=== PATIENT | male | born 1955 | race Hispanic/Latino ===

== ENCOUNTER 2019-10-20 22:31 | Inpatient (IN) | payer MEDICARE ==
[2019-10-20 23:12] LABS: Bacteria,Urine 2+ /HPF (Negative); Bilirubin,Urine NEG (Negative); Blood,Urine MOD (Negative); Color,Urine Yellow (Yellow); Mucus,Urine FEW /HPF; Sperm,Urine FEW /HPF (NP); Urobilinogen,Urine < 2.0 mg/dL (<2.0)
[2019-10-20 23:17] LABS: Amphetamine Screen,Urine PRESUMPTIVE NEGATIVE; Benzodiazepines Screen,Urine PRESUMPTIVE NEGATIVE; Cannabinoid Screen,Urine PRESUMPTIVE NEGATIVE; Cocaine Screen,Urine PRESUMPTIVE NEGATIVE; Methadone Screen,Urine PRESUMPTIVE NEGATIVE; Opiate Screen,Urine PRESUMPTIVE NEGATIVE
--- NOTE | 2019-10-20 23:19 | XRay Report ---
CHEST 1 VIEW 10:50 PM INDICATION / CLINICAL INFORMATION: AMS. COMPARISON: None available. FINDINGS: SUPPORT DEVICES: None. HEART / MEDIASTINUM: The heart size and pulmonary vasculature are normal. The aorta is normal in tamera peter. LUNGS / PLEURA: No significant pulmonary or pleural abnormality. No pneumothorax. ADDITIONAL FINDINGS: The left hemidiaphragm is higher than the right. IMPRESSION: 1. Mildly elevated left hemidiaphragm. 2. No acute pulmonary disease is identified. Signer Name: Alexander Lyons MD Signed: 10/20/2019 11:15 PM Workstation Name: [id number]
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
[2019-10-20 23:38] LABS: Basophils % (Auto) 0.1 % (0.0-1.8); Eosinophils % (Auto) 0.1 % (0.0-4.3); Hematocrit 37.3 % (35.5-45.6); Hemoglobin 12.8 gm/dl (11.8-15.2); Lymphocytes # (Auto) 1.3 K/mm3 (1.2-5.4); Lymphocytes % (Auto) 9.5 % (13.4-35.0); Mean Corpuscular HGB Conc 34 % (32-34); Mean Corpuscular Volume 88 fl (84-94); Monocytes # (Auto) 1.1 K/mm3 (0.0-0.8); Platelet Count 161 K/mm3 (140-440); Red Blood Count 4.26 M/mm3 (3.65-5.03); Red Cell Distribution Width 14.1 % (13.2-15.2)
[2019-10-20 23:49] LABS: INR 1.13 (0.87-1.13)
[2019-10-20 23:50] LABS: Partial Thromboplastin Time 28.2 Sec. (24.2-36.6)
[2019-10-20 23:59] LABS: Alanine Aminotransferase 10 units/L (7-56); Albumin 3.7 g/dL (3.9-5); BUN/Creatinine Ratio 6; Blood Urea Nitrogen 3 mg/dL (9-20); Hemolysis Index 36
[2019-10-21 00:02] LABS: Bilirubin,Direct < 0.2 mg/dL (0-0.2)
[2019-10-21] MEDS ORDERED: ONDANSETRON 4 MG/2 ML INJ ONE (00:16)
[2019-10-21] MEDS ORDERED: LORazepam 2 MG/ML VIAL ONE (00:16)
[2019-10-21] MEDS ORDERED: LORazepam 2 MG/ML VIAL IV ONE (00:20)
[2019-10-21] MEDS ORDERED: ONDANSETRON 4 MG/2 ML INJ IV ONE (00:21)
[2019-10-21] MEDS ORDERED: SODIUM CHLORIDE 0.9% 1000 ML 1,000 ML IV ONE (00:24)
--- NOTE | 2019-10-21 00:53 | Cat Scan Report ---
CT HEAD/BRAIN WO CON INDICATION / CLINICAL INFORMATION: Altered mental status. Trauma. TECHNIQUE: All CT scans at this location are performed using CT dose reduction for ALARA by means of automated e xposure control. COMPARISON: None available. FINDINGS: There is mild motion artifact. The ventricular system is normal in size and configuration. No focal l esion or mass effect is seen. There is no evidence of intracranial hemorrhage or acute major vessel o cclusion. The calvarium is intact. The visualized paranasal sinuses and mastoid air cells are clear. IMPRESSION: No acute abnormality. Signer Name: Alexander Lyons MD Signed: 10/21/2019 12:49 AM Workstation Name: [id number]
[2019-10-21] MEDS ORDERED: ONDANSETRON 4 MG/2 ML INJ IV PRN (02:47)
[2019-10-21] MEDS ORDERED: MAGNESIUM HYDROXIDE (MOM) ORAL LIQD UDC PO PRN (02:47)
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
[2019-10-21] MEDS ORDERED: SODIUM CHLORIDE 0.9% 1000 ML 1,000 ML ONE ×2 (06:41→07:34)
[2019-10-21] MEDS ORDERED: ACETAMINOPHEN 325 MG TAB ONE (07:33)
[2019-10-21] MEDS: SODIUM CHLORIDE 0.9% 1000 ML 1,000 ML IV SCH ×2 (07:38→21:42)
[2019-10-21] MEDS ORDERED: ACETAMINOPHEN 650 MG RECT SUPP PR ONE (07:45)
[2019-10-21] MEDS ORDERED: ACETAMINOPHEN 650 MG RECT SUPP PR PRN (07:58)
--- NOTE | 2019-10-21 08:19 | Progress Note ---
Assessment and Plan Assessment and plan: --Toxic metabolic encephalopathy; Multifactorial, hyponatremia, acute psychosis Neurochecks, supportive care --Possible alcohol withdrawal symptoms; [facility] protocol, IV fluids, supportive care Chest x-ray; mildly elevated left diaphragm. No acute abnormality CT head; no acute abnormality CT C-spine; pending report --Severe hyponatremia; replaced with sodium chloride IV Closely monitor electrolytes, nephrology consultation as needed --Acute psychosis; unknown psych history Restraint for safety, PRN medications Psych evaluation --Febrile illness; T-max 101 F; IV fluids, anti-biotics, consider empiric antibiotics if fever persists Set of cultures blood and urine --DVT prophylaxis; Lovenox Restraint for safety Monitor closely and adjust management as needed Plan of care reviewed with the patient'S nurse History Interval history: Patient seen and examined at the bedside Patient's chart and medications reviewed Admitted this morning with acute metabolic encephalopathy Severe hyponatremia, possible alcohol withdrawals Patient is lethargic, responds to deep stimuli, noncommunicative Agitated and psychotic Vital signs noted Restraint for safety Hospitalist Physical - Constitutional Vitals: Temp Pulse Resp BP Pulse Ox 101.8 F H 82 20 130/54 96 10/21/19 07:27 10/21/19 07:27 10/21/19 07:27 10/21/19 07:27 10/21/19 07:27 General appearance: Present: severe distress, well-nourished, other (Agitated) - EENT Eyes: Present: PERRL, EOM intact - Neck Neck: Present: supple, normal ROM - Respiratory Respiratory effort: normal Respiratory: bilateral: diminished, rhonchi, negative: rales, wheezing - Cardiovascular Rhythm: regular Heart Sounds: Present: S1 & S2 - Extremities Extremities: no ischemia, No edema - Abdominal General gastrointestinal: soft, non-tender, non-distended, normal bowel sounds - Integumentary Integumentary: Present: clear, warm - Psychiatric Psychiatric: appropriate mood/affect, cooperative - Neurologic Neurologic: CNII-XII intact, moves all extremities HEART Score - HEART Score Troponin: Troponin T < 0.010 ng/mL (0.00-0.029) 10/20/19 23:17 Results - Labs CBC & Chem 7: 10/21/19 11:03 10/21/19 11:03 Labs: Laboratory Last Values WBC 13.9 K/mm3 (4.5-11.0) H 10/20/19 23:17 RBC 4.26 M/mm3 (3.65-5.03) 10/20/19 23:17 Hgb 12.8 gm/dl (11.8-15.2) 10/20/19 23:17 Hct 37.3 % (35.5-45.6) 10/20/19 23:17 MCV 88 fl (84-94) 10/20/19 23:17 MCH 30 pg (28-32) 10/20/19 23:17 MCHC 34 % (32-34) 10/20/19 23:17 RDW 14.1 % (13.2-15.2) 10/20/19 23:17 Plt Count 161 K/mm3 (140-440) 10/20/19 23:17 Lymph % (Auto) 9.5 % (13.4-35.0) L 10/20/19 23:17 [place] % (Auto) 8.0 % (0.0-7.3) H 10/20/19 23:17 Eos % (Auto) 0.1 % (0.0-4.3) 10/20/19 23:17 Baso % (Auto) 0.1 % (0.0-1.8) 10/20/19 23:17 Lymph # 1.3 K/mm3 (1.2-5.4) 10/20/19 23:17 [place] # 1.1 K/mm3 (0.0-0.8) H 10/20/19 23:17 Eos # 0.0 K/mm3 (0.0-0.4) 10/20/19 23:17 Baso # 0.0 K/mm3 (0.0-0.1) 10/20/19 23:17 Seg Neutrophils % 82.3 % (40.0-70.0) H 10/20/19 23:17 Seg Neutrophils # 11.4 K/mm3 (1.8-7.7) H 10/20/19 23:17 PT 14.3 Sec. (12.2-14.9) 10/20/19 23:17 INR 1.13 (0.87-1.13) 10/20/19 23:17 APTT 28.2 Sec. (24.2-36.6) 10/20/19 23:17 Sodium 112 mmol/L (137-145) L* 10/20/19 23:17 Potassium 4.2 mmol/L (3.6-5.0) 10/20/19 23:17 Chloride 78.5 mmol/L (98-107) L 10/20/19 23:17 Carbon Dioxide 16 mmol/L (22-30) L 10/20/19 23:17 Anion Gap 22 mmol/L 10/20/19 23:17 BUN 3 mg/dL (9-20) L 10/20/19 23:17 Creatinine 0.5 mg/dL (0.8-1.5) L 10/20/19 23:17 Estimated GFR > 60 ml/min 10/20/19 23:17 BUN/Creatinine Ratio 6 % 10/20/19 23:17 Glucose 114 mg/dL (75-100) H 10/20/19 23:17 POC Glucose 117 (70-105) H 10/20/19 22:52 Calcium 8.0 mg/dL (8.4-10.2) L 10/20/19 23:17 Total Bilirubin 0.80 mg/dL (0.1-1.2) 10/20/19 23:17 Direct Bilirubin < 0.2 mg/dL (0-0.2) 10/20/19 23:17 Indirect Bilirubin 0.6 mg/dL 10/20/19 23:17 AST 19 units/L (5-40) 10/20/19 23:17 ALT 10 units/L (7-56) 10/20/19 23:17 Alkaline Phosphatase 47 units/L (35-129) 10/20/19 23:17 Total Creatine Kinase 687 units/L (55-170) H 10/21/19 02:17 Troponin T < 0.010 ng/mL (0.00-0.029) 10/20/19 23:17 Total Protein 5.6 g/dL (6.3-8.2) L 10/20/19 23:17 Albumin 3.7 g/dL (3.9-5) L 10/20/19 23:17 Albumin/Globulin Ratio 1.9 % 10/20/19 23:17 TSH 2.560 mlU/mL (0.270-4.200) 10/21/19 02:27 Urine Color Yellow (Yellow) 10/20/19 Unknown Urine Turbidity Slightly-cloudy (Clear) 10/20/19 Unknown Urine pH 5.0 (5.0-7.0) 10/20/19 Unknown Ur Specific [place] 1.013 (1.003-1.030) 10/20/19 Unknown Urine Protein 30 mg/dl mg/dL (Negative) 10/20/19 Unknown Urine Glucose (UA) Neg mg/dL (Negative) 10/20/19 Unknown Urine Ketones 80 mg/dL (Negative) 10/20/19 Unknown Urine Blood Mod (Negative) 10/20/19 Unknown Urine Nitrite Neg (Negative) 10/20/19 Unknown Urine Bilirubin Neg (Negative) 10/20/19 Unknown Urine Urobilinogen < 2.0 mg/dL (<2.0) 10/20/19 Unknown Ur Leukocyte Esterase Neg (Negative) 10/20/19 Unknown Urine WBC (Auto) 4.0 /HPF (0.0-6.0) 10/20/19 Unknown Urine RBC (Auto) 4.0 /HPF (0.0-6.0) 10/20/19 Unknown U Epithel Cells (Auto) < 1.0 /HPF (0-13.0) 10/20/19 Unknown Urine Bacteria (Auto) 2+ /HPF (Negative) 10/20/19 Unknown Urine Mucus Few /HPF 10/20/19 Unknown Urine Yeast (Budding) 1+ /HPF 10/20/19 Unknown Urine Sperm Few /HPF (CIRCUS SUPERVISOR) 10/20/19 Unknown Salicylates < 0.3 mg/dL (2.8-20.0) L 10/20/19 23:17 Urine Opiates Screen Presumptive negative 10/20/19 Unknown Urine Methadone Screen Presumptive negative 10/20/19 Unknown Acetaminophen < 5.0 ug/mL (10.0-30.0) L 10/20/19 23:17 Ur Barbiturates Screen Presumptive negative 10/20/19 Unknown Ur Phencyclidine Scrn Presumptive negative 10/20/19 Unknown Ur Amphetamines Screen Presumptive negative 10/20/19 Unknown U Benzodiazepines Scrn Presumptive negative 10/20/19 Unknown Urine Cocaine Screen Presumptive negative 10/20/19 Unknown U Marijuana (THC) Screen Presumptive negative 10/20/19 Unknown Drugs of Abuse Note Disclamer 10/20/19 Unknown Plasma/Serum Alcohol < 0.01 % (0-0.07) 10/20/19 23:17 Active Medications - Current Medications Current Medications: Generic Name Dose Route Start Last Admin Trade Name Everq PRN Reason Stop Dose Admin Acetaminophen 650 mg 10/21/19 02:47 Tylenol PO Q4H PRN Pain MILD(1-3)/Fever >100.5/CORREA Acetaminophen 650 mg 10/21/19 07:58 10/21/19 07:59 Tylenol [place] 650 mg Q6H PRN Administration Pain, Mild (1-3) Heparin Sodium (Porcine) 5,000 unit 10/21/19 06:00 Heparin SUB-Q Q8HR JULIANNA Sodium Chloride 1,000 mls @ 125 mls/hr 10/21/19 03:00 10/21/19 07:38 Nacl 0.9% 1000 Ml IV 125 mls/hr DIRECT JULIANNA Administration Ceftriaxone Sodium 1 gm in 50 mls @ 100 mls/hr 10/21/19 10:00 Rocephin/Ns 1 Gm/50 Ml IV Q24HR [facility] Protocol Magnesium Hydroxide 30 ml 10/21/19 02:47 Milk Of Magnesia PO Q4H PRN Constipation Ondansetron HCl 4 mg 10/21/19 02:47 Zofran IV Q8H PRN Nausea And Vomiting Sodium Chloride 10 ml 10/21/19 10:00 Sodium Chloride Flush Syringe 10 Ml IV BID JULIANNA Sodium Chloride 10 ml 10/21/19 02:47 Sodium Chloride Flush Syringe 10 Ml IV PRN PRN LINE FLUSH
[2019-10-21 11:15] LABS: Basophils % (Auto) 0.1 % (0.0-1.8); Hematocrit 37.4 % (35.5-45.6); Hemoglobin 12.8 gm/dl (11.8-15.2); Mean Corpuscular HGB Conc 34 % (32-34); Mean Corpuscular Volume 88 fl (84-94); Monocytes # (Auto) 1.5 K/mm3 (0.0-0.8); Monocytes % (Auto) 9.9 % (0.0-7.3); Platelet Count 160 K/mm3 (140-440); Red Blood Count 4.26 M/mm3 (3.65-5.03); Red Cell Distribution Width 14.4 % (13.2-15.2)
[2019-10-21 11:35] LABS: BUN/Creatinine Ratio 6; Blood Urea Nitrogen 3 mg/dL (9-20); Calcium 7.1 mg/dL (8.4-10.2); Hemolysis Index 29
[2019-10-21] MEDS: HEPARIN 5,000 UNIT/1 ML VIAL SUB-Q SCH ×2 (17:57→21:42)
[2019-10-21] MEDS: cefTRIAXone/NS 1 GM/50 ML 1 GM/50 ML BAG IV SCH (17:58)
[2019-10-21] MEDS ORDERED: LORazepam 2 MG/ML VIAL IV PRN (19:46)
[2019-10-21 20:23] LABS: Osmolality,Urine 99 Mosm/kg
[2019-10-21] MEDS: LORazepam 2 MG/ML VIAL IV PRN (21:42)
[2019-10-22 04:36] LABS: Basophils % (Auto) 0.1 % (0.0-1.8); Hematocrit 41.1 % (35.5-45.6); Hemoglobin 13.9 gm/dl (11.8-15.2); Lymphocytes # (Auto) 1.2 K/mm3 (1.2-5.4); Lymphocytes % (Auto) 8.9 % (13.4-35.0); Mean Corpuscular HGB Conc 34 % (32-34); Mean Corpuscular Volume 89 fl (84-94); Monocytes # (Auto) 1.2 K/mm3 (0.0-0.8); Monocytes % (Auto) 8.9 % (0.0-7.3); Platelet Count 179 K/mm3 (140-440); Red Blood Count 4.64 M/mm3 (3.65-5.03); Red Cell Distribution Width 14.9 % (13.2-15.2)
[2019-10-22 04:45] LABS: INR 1.14 (0.87-1.13)
[2019-10-22 05:04] LABS: BUN/Creatinine Ratio 3; Blood Urea Nitrogen 2 mg/dL (9-20); Calcium 8.9 mg/dL (8.4-10.2); Hemolysis Index 5
[2019-10-22] MEDS: HEPARIN 5,000 UNIT/1 ML VIAL SUB-Q SCH ×3 (05:21→21:32)
--- NOTE | 2019-10-22 08:26 | Cat Scan Report ---
CT CERVICAL SPINE WO CON INDICATION / CLINICAL INFORMATION: Altered mental status. Trauma with neck pain. TECHNIQUE: All CT scans at this location are performed using CT dose reduction for ALARA by means of automated e xposure control. COMPARISON: None available. FINDINGS: There is mild degenerative disc disease at C5-6 with moderate anterior spurring. The other disc space s are unremarkable. The prevertebral soft tissues are normal. There is no evidence of fracture or sub luxation. I see no evidence of a focal disc herniation or epidural hematoma. The lung apices are sean r. IMPRESSION: No acute abnormality. Signer Name: Alexander Lyons MD Signed: 10/21/2019 12:02 AM Workstation Name: [id number]
[2019-10-22] MEDS: cefTRIAXone/NS 1 GM/50 ML 1 GM/50 ML BAG IV SCH (10:45)
--- NOTE | 2019-10-22 10:47 | Progress Note ---
Assessment and Plan Assessment and plan: -PUI: Rule out COVID-19 Patient has fever, alcohol intoxication, and encephalopathy Dale PCR test, inflammatory markers requested -Toxic metabolic encephalopathy; Multifactorial, hyponatremia, acute psychosis Neurochecks, supportive care --Possible alcohol withdrawal symptoms; CIWA protocol, IV fluids, supportive care Chest x-ray; mildly elevated left diaphragm. No acute abnormality CT head; no acute abnormality CT C-spine; pending report --Severe hyponatremia; replaced with sodium chloride IV Closely monitor electrolytes, nephrology consultation as needed --Acute psychosis; unknown psych history Restraint for safety, PRN medications Psych evaluation --Febrile illness; T-max 101 F; IV fluids, anti-biotics, consider empiric antibiotics if fever persists Set of cultures blood and urine --DVT prophylaxis; Lovenox Restraint for safety Monitor closely and adjust management as needed Plan of care reviewed with the patient'S nurse History Interval history: Seen and examined patient's chart and medications reviewed Patient is confused mildly agitated, low-grade fever Vital signs noted Hospitalist Physical - Constitutional Vitals: Temp Pulse Resp BP Pulse Ox 97.9 F 95 H 18 121/69 92 10/22/19 07:31 10/22/19 07:31 10/22/19 07:31 10/22/19 07:31 10/22/19 07:31 General appearance: Present: mild distress, well-nourished, other (Agitated) - EENT Eyes: Present: PERRL, EOM intact - Neck Neck: Present: supple, normal ROM - Respiratory Respiratory effort: normal Respiratory: bilateral: diminished, negative: rales, rhonchi, wheezing - Cardiovascular Rhythm: regular Heart Sounds: Present: S1 & S2 - Extremities Extremities: no ischemia, No edema - Abdominal General gastrointestinal: soft, non-tender, non-distended, normal bowel sounds - Integumentary Integumentary: Present: clear, warm - Psychiatric Psychiatric: appropriate mood/affect, other (Confused) - Neurologic Neurologic: moves all extremities HEART Score - HEART Score Troponin: Troponin T < 0.010 ng/mL (0.00-0.029) 10/20/19 23:17 Results - Labs CBC & Chem 7: 10/22/19 03:59 10/22/19 03:59 Labs: Laboratory Last Values WBC 13.4 K/mm3 (4.5-11.0) H 07/07/20 03:59 RBC 4.64 M/mm3 (3.65-5.03) 10/22/19 03:59 Hgb 13.9 gm/dl (11.8-15.2) 10/22/19 03:59 Hct 41.1 % (35.5-45.6) 10/22/19 03:59 MCV 89 fl (84-94) 10/22/19 03:59 MCH 30 pg (28-32) 10/22/19 03:59 MCHC 34 % (32-34) 10/22/19 03:59 RDW 14.9 % (13.2-15.2) 10/22/19 03:59 Plt Count 179 K/mm3 (140-440) 10/22/19 03:59 Lymph % (Auto) 8.9 % (13.4-35.0) L 10/22/19 03:59 [place] % (Auto) 8.9 % (0.0-7.3) H 10/22/19 03:59 Eos % (Auto) 0.0 % (0.0-4.3) 10/22/19 03:59 Baso % (Auto) 0.1 % (0.0-1.8) 10/22/19 03:59 Lymph # 1.2 K/mm3 (1.2-5.4) 10/22/19 03:59 [place] # 1.2 K/mm3 (0.0-0.8) H 10/22/19 03:59 Eos # 0.0 K/mm3 (0.0-0.4) 10/22/19 03:59 Baso # 0.0 K/mm3 (0.0-0.1) 10/22/19 03:59 Seg Neutrophils % 82.1 % (40.0-70.0) H 10/22/19 03:59 Seg Neutrophils # 11.0 K/mm3 (1.8-7.7) H 10/22/19 03:59 PT 14.4 Sec. (12.2-14.9) 10/22/19 03:59 INR 1.14 (0.87-1.13) H 10/22/19 03:59 APTT 28.2 Sec. (24.2-36.6) 10/20/19 23:17 Sodium 138 mmol/L (137-145) D 10/22/19 03:59 Potassium 3.5 mmol/L (3.6-5.0) L 10/22/19 03:59 Chloride 100.9 mmol/L (98-107) 10/22/19 03:59 Carbon Dioxide 23 mmol/L (22-30) 10/22/19 03:59 Anion Gap 18 mmol/L 10/22/19 03:59 BUN 2 mg/dL (9-20) L 10/22/19 03:59 Creatinine 0.6 mg/dL (0.8-1.5) L 10/22/19 03:59 Estimated GFR > 60 ml/min 10/22/19 03:59 BUN/Creatinine Ratio 3 % 10/22/19 03:59 Glucose 72 mg/dL (75-100) L 10/22/19 03:59 POC Glucose 117 (70-105) H 10/20/19 22:52 Calcium 8.9 mg/dL (8.4-10.2) D 10/22/19 03:59 Total Bilirubin 0.80 mg/dL (0.1-1.2) 10/20/19 23:17 Direct Bilirubin < 0.2 mg/dL (0-0.2) 10/20/19 23:17 Indirect Bilirubin 0.6 mg/dL 10/20/19 23:17 AST 19 units/L (5-40) 10/20/19 23:17 ALT 10 units/L (7-56) 10/20/19 23:17 Alkaline Phosphatase 47 units/L (35-129) 10/20/19 23:17 Total Creatine Kinase 687 units/L (55-170) H 10/21/19 02:17 Troponin T < 0.010 ng/mL (0.00-0.029) 10/20/19 23:17 Total Protein 5.6 g/dL (6.3-8.2) L 10/20/19 23:17 Albumin 3.7 g/dL (3.9-5) L 10/20/19 23:17 Albumin/Globulin Ratio 1.9 % 10/20/19 23:17 TSH 2.560 mlU/mL (0.270-4.200) 10/21/19 02:27 Urine Color Yellow (Yellow) 10/20/19 Unknown Urine Turbidity Slightly-cloudy (Clear) 10/20/19 Unknown Urine pH 5.0 (5.0-7.0) 10/20/19 Unknown Ur Specific [place] 1.013 (1.003-1.030) 10/20/19 Unknown Urine Protein 30 mg/dl mg/dL (Negative) 10/20/19 Unknown Urine Glucose (UA) Neg mg/dL (Negative) 10/20/19 Unknown Urine Ketones 80 mg/dL (Negative) 10/20/19 Unknown Urine Blood Mod (Negative) 10/20/19 Unknown Urine Nitrite Neg (Negative) 10/20/19 Unknown Urine Bilirubin Neg (Negative) 10/20/19 Unknown Urine Urobilinogen < 2.0 mg/dL (<2.0) 10/20/19 Unknown Ur Leukocyte Esterase Neg (Negative) 10/20/19 Unknown Urine WBC (Auto) 4.0 /HPF (0.0-6.0) 10/20/19 Unknown Urine RBC (Auto) 4.0 /HPF (0.0-6.0) 10/20/19 Unknown U Epithel Cells (Auto) < 1.0 /HPF (0-13.0) 10/20/19 Unknown Urine Bacteria (Auto) 2+ /HPF (Negative) 10/20/19 Unknown Urine Mucus Few /HPF 10/20/19 Unknown Urine Yeast (Budding) 1+ /HPF 10/20/19 Unknown Urine Sperm Few /HPF (PRODUCT SUPPORT ANALYST) 10/20/19 Unknown Urine Osmolality 99 Mosm/kg 10/21/19 18:00 Salicylates < 0.3 mg/dL (2.8-20.0) L 10/20/19 23:17 Urine Opiates Screen Presumptive negative 10/20/19 Unknown Urine Methadone Screen Presumptive negative 10/20/19 Unknown Acetaminophen < 5.0 ug/mL (10.0-30.0) L 10/20/19 23:17 Ur Barbiturates Screen Presumptive negative 10/20/19 Unknown Ur Phencyclidine Scrn Presumptive negative 10/20/19 Unknown Ur Amphetamines Screen Presumptive negative 10/20/19 Unknown U Benzodiazepines Scrn Presumptive negative 10/20/19 Unknown Urine Cocaine Screen Presumptive negative 10/20/19 Unknown U Marijuana (THC) Screen Presumptive negative 10/20/19 Unknown Drugs of Abuse Note Disclamer 10/20/19 Unknown Plasma/Serum Alcohol < 0.01 % (0-0.07) 10/20/19 23:17 Watson/IV: Voiding Method Condom Catheter IV Catheter Type [Left Forearm Peripheral IV ] Active Medications - Current Medications Current Medications: Generic Name Dose Route Start Last Admin Trade Name Freq PRN Reason Stop Dose Admin Acetaminophen 650 mg 10/21/19 02:47 Tylenol PO Q4H PRN Pain MILD(1-3)/Fever >100.5/CORREA Acetaminophen 650 mg 10/21/19 07:58 10/21/19 07:59 Tylenol [place] 650 mg Q6H PRN Administration Pain, Mild (1-3) Heparin Sodium (Porcine) 5,000 unit 10/21/19 06:00 10/22/19 05:21 Heparin SUB-Q 5,000 unit Q8HR JULIANNA Administration Sodium Chloride 1,000 mls @ 125 mls/hr 10/21/19 03:00 10/21/19 21:42 Nacl 0.9% 1000 Ml IV 125 mls/hr DIRECT JULIANNA Administration Ceftriaxone Sodium 1 gm in 50 mls @ 100 mls/hr 10/21/19 10:00 10/21/19 17:58 Rocephin/Ns 1 Gm/50 Ml IV 10/25/19 10:29 Not Given Q24HR JULIANNA Protocol Lorazepam 2 mg 10/21/19 18:14 10/21/19 21:42 Ativan IV 2 mg Q4H PRN Administration Agitation Lorazepam 2 mg 10/21/19 19:46 Ativan IV Q1HR PRN CIWA-Ar 8-15 Magnesium Hydroxide 30 ml 10/21/19 02:47 Milk Of Magnesia PO Q4H PRN Constipation Ondansetron HCl 4 mg 10/21/19 02:47 Zofran IV Q8H PRN Nausea And Vomiting Sodium Chloride 10 ml 10/21/19 10:00 10/21/19 21:43 Sodium Chloride Flush Syringe 10 Ml IV 10 ml BID JULIANNA Administration Sodium Chloride 10 ml 10/21/19 02:47 Sodium Chloride Flush Syringe 10 Ml IV PRN PRN LINE FLUSH
[2019-10-22 11:06] LABS: C-Reactive Protein 18.6 mg/dL (0.00-1.30)
--- NOTE | 2019-10-22 11:50 | Consultation ---
History of Present Illness - Reason for Consult Consult date: 10/22/19 Reason for consult: AMS - History of Present Psychiatric Illness Iron Munoz is a 64y/o male patient who is said to have been found on the floor by EMS and became combative, and believed to be having ETOH withdrawal, per chart. I attempted to interview the patient today, but was unable to engage the patient. He is confused and in restraints. He is unable to give any history or insight as to what is going on with him. PAST PSYCHIATRIC HISTORY Unable to obtain from patient PAST MEDICAL HISTORY: Unable to obtaing Family Psychiatric History: Unable to obtain SOCIAL HISTORY Unable to obtain MENTAL STATUS EXAMINATION Unable to assess Assessment and Plan Alcohol Dependence with Withdrawal MEDICATIONS: CIWA Depakon 500mg IV q 12 hrs Risks, benefits and alternatives of medications discussed with the patient, questions answered and consent obtained from patient. PSYCHOTHERAPY: Supportive psychotherapy provided MEDICAL: Per primary team DELIRIUM PRECAUTIONS: Please re-orient patient frequently, keep lights on during the day, and minimize benzodiazepines and opiates as these medications could wo rsen patient's confusion. CHIEF MECHANICAL ENGINEER: defer to primary DISPOSITION: TBD FOLLOW-UP: Will follow Thank you for the consult. Please contact with any questions and/or concerns. Medications and Allergies Allergies Allergy/AdvReac Type Severity Reaction Status Date / Time Unable to Assess Allergy Verified 10/21/19 00:15 Active Meds: Active Medications Acetaminophen (Tylenol) 650 mg PO Q4H PRN PRN Reason: Pain MILD(1-3)/Fever >100.5/CORREA Acetaminophen (Tylenol) 650 mg [place] Q6H PRN PRN Reason: Pain, Mild (1-3) Last Admin: 10/21/19 07:59 Dose: 650 mg Documented by: Heparin Sodium (Porcine) (Heparin) 5,000 unit SUB-Q Q8HR JULIANNA Last Admin: 10/22/19 05:21 Dose: 5,000 unit Documented by: Sodium Chloride (Nacl 0.9% 1000 Ml) 1,000 mls @ 125 mls/hr IV DIRECT JULIANNA Last Admin: 10/21/19 21:42 Dose: 125 mls/hr Documented by: Ceftriaxone Sodium (Rocephin/Ns 1 Gm/50 Ml) 1 gm in 50 mls @ 100 mls/hr IV Q24HR JULIANNA; Protocol Stop: 10/25/19 10:29 Last Admin: 10/22/19 10:45 Dose: 100 mls/hr Documented by: Lorazepam (Ativan) 2 mg IV Q4H PRN PRN Reason: Agitation Last Admin: 10/21/19 21:42 Dose: 2 mg Documented by: Lorazepam (Ativan) 2 mg IV Q1HR PRN PRN Reason: CIWA-Ar 8-15 Magnesium Hydroxide (Milk Of Magnesia) 30 ml PO Q4H PRN PRN Reason: Constipation Ondansetron HCl (Zofran) 4 mg IV Q8H PRN PRN Reason: Nausea And Vomiting Sodium Chloride (Sodium Chloride Flush Syringe 10 Ml) 10 ml IV BID JULIANNA Last Admin: 10/22/19 10:45 Dose: 10 ml Documented by: Sodium Chloride (Sodium Chloride Flush Syringe 10 Ml) 10 ml IV PRN PRN PRN Reason: LINE FLUSH Mental Status Exam - Vital signs Last Vital Signs Temp 99.0 F 10/22/19 11:02 Pulse 92 H 10/22/19 11:02 Resp 18 10/22/19 11:02 BP 109/69 10/22/19 11:02 Pulse Ox 97 10/22/19 11:02 Results Result Diagrams: 10/22/19 03:59 10/22/19 03:59 Abnormal lab results 10/22/19 10/22/19 10/22/19 Range/Units 03:59 03:59 03:59 WBC 13.4 H (4.5-11.0) K/mm3 Lymph % (Auto) 8.9 L (13.4-35.0) % [place] % (Auto) 8.9 H (0.0-7.3) % [place] # 1.2 H (0.0-0.8) K/mm3 Seg Neutrophils % 82.1 H (40.0-70.0) % Seg Neutrophils # 11.0 H (1.8-7.7) K/mm3 INR 1.14 H (0.87-1.13) D-Dimer (0-234) ng/mlDDU Potassium 3.5 L (3.6-5.0) mmol/L BUN 2 L (9-20) mg/dL Creatinine 0.6 L (0.8-1.5) mg/dL Glucose 72 L (75-100) mg/dL Lactate Dehydrogenase (91-180) units/L C-Reactive Protein (0.00-1.30) mg/dL 10/22/19 10/22/19 Range/Units 10:32 10:32 WBC (4.5-11.0) K/mm3 Lymph % (Auto) (13.4-35.0) % [place] % (Auto) (0.0-7.3) % [place] # (0.0-0.8) K/mm3 Seg Neutrophils % (40.0-70.0) % Seg Neutrophils # (1.8-7.7) K/mm3 INR (0.87-1.13) D-Dimer 707.81 H (0-234) ng/mlDDU Potassium (3.6-5.0) mmol/L BUN (9-20) mg/dL Creatinine (0.8-1.5) mg/dL Glucose (75-100) mg/dL Lactate Dehydrogenase 277 H (91-180) units/L C-Reactive Protein 18.60 H (0.00-1.30) mg/dL All other labs normal.
[2019-10-22] MEDS: VALPROATE SODIUM 500 MG in SODIUM CHLORIDE 0.9% 100 ML IV SCH ×2 (14:37→21:44)
[2019-10-22] MEDS ORDERED: FUROSEMIDE 40 MG/4 ML INJ IV ONE (17:51)
[2019-10-22] MEDS: LORazepam 2 MG/ML VIAL IV PRN (19:22)
[2019-10-22] MEDS: SODIUM CHLORIDE 0.9% 1000 ML 1,000 ML IV SCH (21:42)
[2019-10-23] MEDS: HEPARIN 5,000 UNIT/1 ML VIAL SUB-Q SCH ×3 (05:52→22:44)
[2019-10-23] MEDS: cefTRIAXone/NS 1 GM/50 ML 1 GM/50 ML BAG IV SCH (09:26)
--- NOTE | 2019-10-23 10:11 | Progress Note ---
Subjective - Reason for Consult Consult date: 10/23/19 Reason for consult: AMS, alcohol withdrawal - Chief Complaint Chief complaint: The patient's medical record was reviewed and the patient's progress was discussed with the nursing staff. The nurse note states the patient in bed agitated, and is not aware of his surroundings. bilateral wrist restrains in place due to agitation and pulling on lines. The nurse caring for the patient this morning states the patient has been sleeping. She says he awakes briefly but she is unable to get anything out of him. I attempted to interview the patient this morning. He is in restraints. The patient can be heard with wet lung sounds. He is lying in bed asleep. He arouses with difficulty and says "what," then drifts back to sleep. The patient could not be engaged to complete the interview. ROS Could not assess MENTAL STATUS EXAMINATION Unable to assess Assessment and Plan Alcohol Dependence with Withdrawal Altered Mental Status MEDICATIONS: CIWA Continue Depakon 500mg IV q 12 hrs Risks, benefits and alternatives of medications discussed with the patient, questions answered and consent obtained from patient. PSYCHOTHERAPY: Supportive psychotherapy provided MEDICAL: Per primary team DELIRIUM PRECAUTIONS: Please re-orient patient frequently, keep lights on during the day, and minimize benzodiazepines and opiates as these medications could worsen patient's confusion. COMMODITIES REQUIREMENTS ANALYST: defer to primary DISPOSITION: TBD FOLLOW-UP: Will follow Thank you for the consult. Please contact with any questions and/or concerns. Mental Status Exam - Vital signs Last Vital Signs Temp 98.6 F 10/23/19 05:48 Pulse 52 L 10/23/19 06:00 Resp 22 10/23/19 05:48 BP 131/62 10/23/19 05:48 Pulse Ox 92 10/23/19 06:00
[2019-10-23] MEDS: VALPROATE SODIUM 500 MG in SODIUM CHLORIDE 0.9% 100 ML IV SCH ×2 (12:24→22:44)
[2019-10-23] MEDS ORDERED: FUROSEMIDE 40 MG/4 ML INJ IV ONE (13:00)
--- NOTE | 2019-10-23 18:28 | Progress Note ---
Assessment and Plan Assessment and plan: --Negative COVID test -PUI: Rule out COVID-19/chest negative Continue supportive care --Toxic metabolic encephalopathy; Multifactorial, hyponatremia, acute psychosis Neurochecks, Patient is more alert and awake today --Possible alcohol withdrawal symptoms; CIWA protocol, IV fluids, supportive care Chest x-ray; mildly elevated left diaphragm. No acute abnormality CT head; no acute abnormality CT C-spine; pending report --Severe hyponatremia; resolved Closely monitor electrolytes, --Acute psychosis; unknown psych history Restraint for safety, PRN medications Follow psych evaluation --Febrile illness; T-max 101 F; Resolved, afebrile last 48 hours --DVT prophylaxis; Lovenox Restraint for safety PT OT, DC planning Possible discharge in 1 to 2 days if stable Monitor closely and adjust management as needed Plan of care reviewed with the patient'S nurse History Interval history: Patient seen and examined at the bedside today Isolation precautions, PPE protocols strictly followed Patient is more alert and awake today Afebrile Vital signs reviewed Hospitalist Physical - Constitutional Vitals: Temp Pulse Resp BP Pulse Ox 98.6 F 80 20 104/72 97 10/23/19 16:28 10/23/19 16:28 10/23/19 16:28 10/23/19 16:28 10/23/19 16:28 General appearance: Present: mild distress, well-nourished - EENT Eyes: Present: PERRL, EOM intact - Neck Neck: Present: supple, normal ROM - Respiratory Respiratory effort: normal Respiratory: bilateral: diminished, negative: rales, rhonchi, wheezing - Cardiovascular Rhythm: regular Heart Sounds: Present: S1 & S2 - Extremities Extremities: no ischemia, No edema - Abdominal General gastrointestinal: soft, non-tender, non-distended, normal bowel sounds - Integumentary Integumentary: Present: clear, warm - Psychiatric Psychiatric: appropriate mood/affect - Neurologic Neurologic: CNII-XII intact, moves all extremities HEART Score - HEART Score Troponin: Troponin T < 0.010 ng/mL (0.00-0.029) 10/20/19 23:17 Results - Labs CBC & Chem 7: 10/22/19 03:59 10/22/19 03:59 Labs: Laboratory Last Values WBC 13.4 K/mm3 (4.5-11.0) H 10/22/19 03:59 RBC 4.64 M/mm3 (3.65-5.03) 10/22/19 03:59 Hgb 13.9 gm/dl (11.8-15.2) 10/22/19 03:59 Hct 41.1 % (35.5-45.6) 10/22/19 03:59 MCV 89 fl (84-94) 10/22/19 03:59 MCH 30 pg (28-32) 10/22/19 03:59 MCHC 34 % (32-34) 10/22/19 03:59 RDW 14.9 % (13.2-15.2) 10/22/19 03:59 Plt Count 179 K/mm3 (140-440) 10/22/19 03:59 Lymph % (Auto) 8.9 % (13.4-35.0) L 10/22/19 03:59 [place] % (Auto) 8.9 % (0.0-7.3) H 10/22/19 03:59 Eos % (Auto) 0.0 % (0.0-4.3) 10/22/19 03:59 Baso % (Auto) 0.1 % (0.0-1.8) 10/22/19 03:59 Lymph # 1.2 K/mm3 (1.2-5.4) 10/22/19 03:59 [place] # 1.2 K/mm3 (0.0-0.8) H 10/22/19 03:59 Eos # 0.0 K/mm3 (0.0-0.4) 10/22/19 03:59 Baso # 0.0 K/mm3 (0.0-0.1) 10/22/19 03:59 Seg Neutrophils % 82.1 % (40.0-70.0) H 10/22/19 03:59 Seg Neutrophils # 11.0 K/mm3 (1.8-7.7) H 10/22/19 03:59 PT 14.4 Sec. (12.2-14.9) 10/22/19 03:59 INR 1.14 (0.87-1.13) H 10/22/19 03:59 APTT 28.2 Sec. (24.2-36.6) 10/20/19 23:17 D-Dimer 707.81 ng/mlDDU (0-234) H 10/22/19 10:32 Sodium 138 mmol/L (137-145) D 10/22/19 03:59 Potassium 3.5 mmol/L (3.6-5.0) L 10/22/19 03:59 Chloride 100.9 mmol/L (98-107) 10/22/19 03:59 Carbon Dioxide 23 mmol/L (22-30) 10/22/19 03:59 Anion Gap 18 mmol/L 10/22/19 03:59 BUN 2 mg/dL (9-20) L 10/22/19 03:59 Creatinine 0.6 mg/dL (0.8-1.5) L 10/22/19 03:59 Estimated GFR > 60 ml/min 10/22/19 03:59 BUN/Creatinine Ratio 3 % 10/22/19 03:59 Glucose 72 mg/dL (75-100) L 10/22/19 03:59 POC Glucose 117 (70-105) H 10/20/19 22:52 Calcium 8.9 mg/dL (8.4-10.2) D 10/22/19 03:59 Ferritin 238.1 ng/mL (13.0-400.0) 10/22/19 10:32 Total Bilirubin 0.80 mg/dL (0.1-1.2) 10/20/19 23:17 Direct Bilirubin < 0.2 mg/dL (0-0.2) 10/20/19 23:17 Indirect Bilirubin 0.6 mg/dL 10/20/19 23:17 AST 19 units/L (5-40) 10/20/19 23:17 ALT 10 units/L (7-56) 10/20/19 23:17 Alkaline Phosphatase 47 units/L (35-129) 10/20/19 23:17 Lactate Dehydrogenase 277 units/L (91-180) H 10/22/19 10:32 Total Creatine Kinase 687 units/L (55-170) H 10/21/19 02:17 Troponin T < 0.010 ng/mL (0.00-0.029) 10/20/19 23:17 C-Reactive Protein 18.60 mg/dL (0.00-1.30) H 10/22/19 10:32 Total Protein 5.6 g/dL (6.3-8.2) L 10/20/19 23:17 Albumin 3.7 g/dL (3.9-5) L 10/20/19 23:17 Albumin/Globulin Ratio 1.9 % 10/20/19 23:17 TSH 2.560 mlU/mL (0.270-4.200) 10/21/19 02:27 Urine Color Yellow (Yellow) 10/20/19 Unknown Urine Turbidity Slightly-cloudy (Clear) 10/20/19 Unknown Urine pH 5.0 (5.0-7.0) 10/20/19 Unknown Ur Specific [place] 1.013 (1.003-1.030) 10/20/19 Unknown Urine Protein 30 mg/dl mg/dL (Negative) 10/20/19 Unknown Urine Glucose (UA) Neg mg/dL (Negative) 10/20/19 Unknown Urine Ketones 80 mg/dL (Negative) 10/20/19 Unknown Urine Blood Mod (Negative) 10/20/19 Unknown Urine Nitrite Neg (Negative) 10/20/19 Unknown Urine Bilirubin Neg (Negative) 10/20/19 Unknown Urine Urobilinogen < 2.0 mg/dL (<2.0) 10/20/19 Unknown Ur Leukocyte Esterase Neg (Negative) 10/20/19 Unknown Urine WBC (Auto) 4.0 /HPF (0.0-6.0) 10/20/19 Unknown Urine RBC (Auto) 4.0 /HPF (0.0-6.0) 10/20/19 Unknown U Epithel Cells (Auto) < 1.0 /HPF (0-13.0) 10/20/19 Unknown Urine Bacteria (Auto) 2+ /HPF (Negative) 10/20/19 Unknown Urine Mucus Few /HPF 10/20/19 Unknown Urine Yeast (Budding) 1+ /HPF 10/20/19 Unknown Urine Sperm Few /HPF (SENIOR ORACLE DATABASE ADMINISTRATOR) 10/20/19 Unknown Urine Osmolality 99 Mosm/kg 10/21/19 18:00 Salicylates < 0.3 mg/dL (2.8-20.0) L 10/20/19 23:17 Urine Opiates Screen Presumptive negative 10/20/19 Unknown Urine Methadone Screen Presumptive negative 10/20/19 Unknown Acetaminophen < 5.0 ug/mL (10.0-30.0) L 10/20/19 23:17 Ur Barbiturates Screen Presumptive negative 10/20/19 Unknown Ur Phencyclidine Scrn Presumptive negative 10/20/19 Unknown Ur Amphetamines Screen Presumptive negative 10/20/19 Unknown U Benzodiazepines Scrn Presumptive negative 10/20/19 Unknown Urine Cocaine Screen Presumptive negative 10/20/19 Unknown U Marijuana (THC) Screen Presumptive negative 10/20/19 Unknown Drugs of Abuse Note Disclamer 10/20/19 Unknown Plasma/Serum Alcohol < 0.01 % (0-0.07) 10/20/19 23:17 Coronavirus (PCR) Negative (Negative) 10/23/19 Unknown Watson/IV: Voiding Method Condom Catheter IV Catheter Type [Left Forearm Peripheral IV ] Active Medications - Current Medications Current Medications: Generic Name Dose Route Start Last Admin Trade Name Freq PRN Reason Stop Dose Admin Acetaminophen 650 mg 10/21/19 02:47 Tylenol PO Q4H PRN Pain MILD(1-3)/Fever >100.5/CORREA Acetaminophen 650 mg 10/21/19 07:58 10/21/19 07:59 Tylenol [place] 650 mg Q6H PRN Administration Pain, Mild (1-3) Heparin Sodium (Porcine) 5,000 unit 10/21/19 06:00 10/23/19 13:15 Heparin SUB-Q 5,000 unit Q8HR JULIANNA Administration Sodium Chloride 1,000 mls @ 125 mls/hr 10/21/19 03:00 10/23/19 06:03 Nacl 0.9% 1000 Ml IV Infused DIRECT JULIANNA Infusion Ceftriaxone Sodium 1 gm in 50 mls @ 100 mls/hr 10/21/19 10:00 10/23/19 09:26 Rocephin/Ns 1 Gm/50 Ml IV 10/25/19 10:29 100 mls/hr Q24HR JULIANNA Administration Protocol Valproate Sodium 500 mg/ 105 mls @ 100 mls/hr 10/22/19 13:00 10/23/19 12:24 Sodium Chloride IV 100 mls/hr Q12HR JULIANNA Administration Lorazepam 2 mg 10/21/19 18:14 10/22/19 19:22 Ativan IV 2 mg Q4H PRN Administration Agitation Lorazepam 2 mg 10/21/19 19:46 Ativan IV Q1HR PRN CIWA-Ar 8-15 Magnesium Hydroxide 30 ml 10/21/19 02:47 Milk Of Magnesia PO Q4H PRN Constipation Ondansetron HCl 4 mg 10/21/19 02:47 Zofran IV Q8H PRN Nausea And Vomiting Sodium Chloride 10 ml 10/21/19 10:00 10/23/19 09:38 Sodium Chloride Flush Syringe 10 Ml IV 10 ml BID JULIANNA Administration Sodium Chloride 10 ml 10/21/19 02:47 Sodium Chloride Flush Syringe 10 Ml IV PRN PRN LINE FLUSH Nutrition/Malnutrition Assess - Dietary Evaluation Nutrition/Malnutrition Findings: Nutrition Notes Start: 10/22/19 14: 52 Freq: Status: Active Protocol: Document 10/22/19 14:52 LM (Rec: 10/22/19 14:59 LM [id number]) Nutrition Notes Need for Assessment generated from: MD Order,MST Initial or Follow up Assessment Other Pertinent Diagnosis UTI, AMS Current Diet NPO Labs/Tests K 3.5 BG 72 Pertinent Medications Reviewed Height 5 ft 11 in Weight 86 kg [place] Body Weight (kg) 78.18 BMI 26.4 Weight Status Overweight Subjective/Other Information MD consult for ONS and malnutrition. RN screen for MST and skin risk. CHIEF METEOROLOGIST with pt at time of visit. Dillon score is 14 but no wounds documented. CHIEF METEOROLOGIST recommends dobhoff gor pt. Burn Absent Trauma Absent Minimum of two criteria No physical signs of malnutrition #1 Nutrition Diagnosis Inadequate oral intake Etiology AMS As Evidenced by Signs and Symptoms CHIEF METEOROLOGIST recommends dobhoff for pt Is patient on ventilator? No Is Patient Ambulatory and/or Out of Bed No REE-([facility]-confined to bed) 1998.860 Calculation Used for Recommendations [facility] Additional Notes Protein: 86-103g (1-1.2g/kg) Fluid: 1ml/kcal Nutrition Intervention Change Diet Order: TF when medically feasible Goal #1 start TF when medically feasible Anticipated Discharge Needs: unable to determine at this time Follow-Up By: 10/24/19 Additional Comments F/U for TF consult/POC
[2019-10-24] MEDS: HEPARIN 5,000 UNIT/1 ML VIAL SUB-Q SCH ×3 (07:27→23:52)
[2019-10-24] MEDS: cefTRIAXone/NS 1 GM/50 ML 1 GM/50 ML BAG IV SCH (11:00)
--- NOTE | 2019-10-24 11:22 | Progress Note ---
Subjective - Reason for Consult Consult date: 10/24/19 Reason for consult: alcohole withdrawal - Chief Complaint Chief complaint: The patient's medical record was reviewed and the patient's progress was discussed with the nursing staff. During my interview with the patient today, he is much more lucid than previous days. He is lying in bed, awake. He is watching t.v. He is a/o x 2 to 3, he was confused about the date. He continues watching t.v as I'm speaking with him and makes intermittent eye contact. The patient has a wet cough. I asked the patient if he knew why I was here to see hime, he replied, "no." When asking the patient about his drinking and withdrawals, he states, "I drink a lot and I'm not looking to quite right now." He then smiles. He says he "feels alright." The patient denies hallucinations of any kind. When asked about suicidal or homicidal thoughts, the patient looks at me and laughs and says, "no, I don't." He says he "lives with his father." He then says, "we take care of each other." I got permission to call the patient's father, Bryant to get any history. The patient agreed and gave me a phone number of [phone]. The number was for some building at [facility]. When going back to inform the patient of the wrong number. He states, "oh, I don't remember what it is." REVIEW OF SYSTEMS Constitutional: Negative for weight loss ENT: Negative for stridor Respiratory: Positive for cough All other systems reviewed and are negative, except respiratory MENTAL STATUS EXAMINATION General Appearance: Dressed appropriately Behavior: calm, cooperative. Intermittent eye contact Mood: "alright" Affect: Congruent with stated mood Speech: Normal tone and pace Thought Process: Goal directed Thought Content: Suicidal Ideation: Denies Homicidal Ideation: Denies Hallucinations: Denies Delusions: Denies Insight and Judgment: Limited Memory/Cognition: Limited Assessment and Plan Alcohol Dependence with Withdrawal Alcohol Induced Mood Disorder MEDICATIONS: No scripts given at this time Risks, benefits and alternatives of medications discussed with the patient, questions answered and consent obtained from patient. PSYCHOTHERAPY: Supportive psychotherapy provided MEDICAL: Per primary team DELIRIUM PRECAUTIONS: Please re-orient patient frequently, keep lights on during the day, and minimize benzodiazepines and opiates as these medications could worsen patient's confusion. LOG TURNER: defer to primary DISPOSITION: No indication for acute inpatient psychiatric treatment at this time. The patient may discharge home once medically clear. The staining machine operator is to give the patient outpatient resources for psych services and 12 step programs The patient verbalizes understanding and agreement of plan. The patient is to abstain from alcohol use The patient is to follow up with outpatient psychiatry or primary in 7 to 14 days upon discharge. Will sign off. Thank you for the consult. Please contact with any questions and/or concerns. Mental Status Exam - Vital signs Last Vital Signs Temp 98.2 F 10/24/19 04:41 Pulse 73 10/24/19 04:41 Resp 18 10/24/19 09:11 BP 121/72 10/24/19 04:41 Pulse Ox 96 10/24/19 09:18
--- NOTE | 2019-10-24 18:27 | Progress Note ---
Assessment and Plan Assessment and plan: - COVID-19 test negative Continue supportive care --Toxic metabolic encephalopathy; Multifactorial, hyponatremia, acute psychosis Neurochecks, Patient is more alert and awake today --Possible alcohol withdrawal symptoms; CIWA protocol, IV fluids, supportive care Chest x-ray; mildly elevated left diaphragm. No acute abnormality CT head; no acute abnormality CT C-spine; pending report --Severe hyponatremia; resolved Closely monitor electrolytes, --Acute psychosis; unknown psych history Restraint for safety, PRN medications Follow psych evaluation --Febrile illness; T-max 101 F; Resolved, afebrile last 48 hours --DVT prophylaxis; Lovenox Restraint for safety PT OT, DC planning Possible discharge in 1 to 2 days if stable Restraint for safety Monitor closely and adjust management as needed Plan of care reviewed with the patient'S nurse Disposition: Follow clinically ,discharge planning HHS vs placement when stable Brief history :64-year-old male admitted through the emergency room with altered mental status, possible alcohol withdrawal symptoms and recurren falls. Patient is more alert ,PT working with him,Psych following ,advance diet and dc when stable History Interval history: Patient seen and examined medical records reviewed Patient remains confused, PT is trying to work with him More alert and awake Vital signs noted Hospitalist Physical - Constitutional Vitals: Temp Pulse Resp BP Pulse Ox 99.1 F 67 20 135/70 95 10/24/19 11:50 10/24/19 11:50 10/24/19 11:50 10/24/19 11:50 10/24/19 11:50 General appearance: Present: mild distress, well-nourished - EENT Eyes: Present: PERRL, EOM intact - Neck Neck: Present: supple, normal ROM - Respiratory Respiratory effort: normal Respiratory: bilateral: diminished, negative: rales, rhonchi, wheezing - Cardiovascular Rhythm: regular Heart Sounds: Present: S1 & S2 - Extremities Extremities: no ischemia, No edema - Abdominal General gastrointestinal: soft, non-tender, non-distended, normal bowel sounds - Integumentary Integumentary: Present: clear, warm - Psychiatric Psychiatric: agitated, other (Confused) - Neurologic Neurologic: moves all extremities HEART Score - HEART Score Troponin: Troponin T < 0.010 ng/mL (0.00-0.029) 10/20/19 23:17 Results - Labs CBC & Chem 7: 10/22/19 03:59 10/22/19 03:59 Labs: Laboratory Last Values WBC 13.4 K/mm3 (4.5-11.0) H 10/22/19 03:59 RBC 4.64 M/mm3 (3.65-5.03) 10/22/19 03:59 Hgb 13.9 gm/dl (11.8-15.2) 10/22/19 03:59 Hct 41.1 % (35.5-45.6) 10/22/19 03:59 MCV 89 fl (84-94) 10/22/19 03:59 MCH 30 pg (28-32) 10/22/19 03:59 MCHC 34 % (32-34) 10/22/19 03:59 RDW 14.9 % (13.2-15.2) 10/22/19 03:59 Plt Count 179 K/mm3 (140-440) 10/22/19 03:59 Lymph % (Auto) 8.9 % (13.4-35.0) L 10/22/19 03:59 [place] % (Auto) 8.9 % (0.0-7.3) H 10/22/19 03:59 Eos % (Auto) 0.0 % (0.0-4.3) 10/22/19 03:59 Baso % (Auto) 0.1 % (0.0-1.8) 10/22/19 03:59 Lymph # 1.2 K/mm3 (1.2-5.4) 10/22/19 03:59 [place] # 1.2 K/mm3 (0.0-0.8) H 10/22/19 03:59 Eos # 0.0 K/mm3 (0.0-0.4) 10/22/19 03:59 Baso # 0.0 K/mm3 (0.0-0.1) 10/22/19 03:59 Seg Neutrophils % 82.1 % (40.0-70.0) H 10/22/19 03:59 Seg Neutrophils # 11.0 K/mm3 (1.8-7.7) H 10/22/19 03:59 PT 14.4 Sec. (12.2-14.9) 10/22/19 03:59 INR 1.14 (0.87-1.13) H 10/22/19 03:59 APTT 28.2 Sec. (24.2-36.6) 10/20/19 23:17 D-Dimer 707.81 ng/mlDDU (0-234) H 10/22/19 10:32 Sodium 138 mmol/L (137-145) D 10/22/19 03:59 Potassium 3.5 mmol/L (3.6-5.0) L 10/22/19 03:59 Chloride 100.9 mmol/L (98-107) 10/22/19 03:59 Carbon Dioxide 23 mmol/L (22-30) 10/22/19 03:59 Anion Gap 18 mmol/L 10/22/19 03:59 BUN 2 mg/dL (9-20) L 10/22/19 03:59 Creatinine 0.6 mg/dL (0.8-1.5) L 10/22/19 03:59 Estimated GFR > 60 ml/min 10/22/19 03:59 BUN/Creatinine Ratio 3 % 10/22/19 03:59 Glucose 72 mg/dL (75-100) L 10/22/19 03:59 POC Glucose 117 (70-105) H 10/20/19 22:52 Calcium 8.9 mg/dL (8.4-10.2) D 10/22/19 03:59 Ferritin 238.1 ng/mL (13.0-400.0) 10/22/19 10:32 Total Bilirubin 0.80 mg/dL (0.1-1.2) 10/20/19 23:17 Direct Bilirubin < 0.2 mg/dL (0-0.2) 10/20/19 23:17 Indirect Bilirubin 0.6 mg/dL 10/20/19 23:17 AST 19 units/L (5-40) 10/20/19 23:17 ALT 10 units/L (7-56) 10/20/19 23:17 Alkaline Phosphatase 47 units/L (35-129) 10/20/19 23:17 Lactate Dehydrogenase 277 units/L (91-180) H 10/22/19 10:32 Total Creatine Kinase 687 units/L (55-170) H 10/21/19 02:17 Troponin T < 0.010 ng/mL (0.00-0.029) 10/20/19 23:17 C-Reactive Protein 18.60 mg/dL (0.00-1.30) H 10/22/19 10:32 Total Protein 5.6 g/dL (6.3-8.2) L 10/20/19 23:17 Albumin 3.7 g/dL (3.9-5) L 10/20/19 23:17 Albumin/Globulin Ratio 1.9 % 10/20/19 23:17 TSH 2.560 mlU/mL (0.270-4.200) 10/21/19 02:27 Urine Color Yellow (Yellow) 10/20/19 Unknown Urine Turbidity Slightly-cloudy (Clear) 10/20/19 Unknown Urine pH 5.0 (5.0-7.0) 10/20/19 Unknown Ur Specific [place] 1.013 (1.003-1.030) 10/20/19 Unknown Urine Protein 30 mg/dl mg/dL (Negative) 10/20/19 Unknown Urine Glucose (UA) Neg mg/dL (Negative) 10/20/19 Unknown Urine Ketones 80 mg/dL (Negative) 10/20/19 Unknown Urine Blood Mod (Negative) 10/20/19 Unknown Urine Nitrite Neg (Negative) 10/20/19 Unknown Urine Bilirubin Neg (Negative) 10/20/19 Unknown Urine Urobilinogen < 2.0 mg/dL (<2.0) 10/20/19 Unknown Ur Leukocyte Esterase Neg (Negative) 10/20/19 Unknown Urine WBC (Auto) 4.0 /HPF (0.0-6.0) 10/20/19 Unknown Urine RBC (Auto) 4.0 /HPF (0.0-6.0) 10/20/19 Unknown U Epithel Cells (Auto) < 1.0 /HPF (0-13.0) 10/20/19 Unknown Urine Bacteria (Auto) 2+ /HPF (Negative) 10/20/19 Unknown Urine Mucus Few /HPF 10/20/19 Unknown Urine Yeast (Budding) 1+ /HPF 10/20/19 Unknown Urine Sperm Few /HPF (CHILD CARE CENTRE MANAGER) 10/20/19 Unknown Urine Osmolality 99 Mosm/kg 10/21/19 18:00 Urine Sodium 11 mmol/L 10/21/19 18:00 Salicylates < 0.3 mg/dL (2.8-20.0) L 10/20/19 23:17 Urine Opiates Screen Presumptive negative 10/20/19 Unknown Urine Methadone Screen Presumptive negative 10/20/19 Unknown Acetaminophen < 5.0 ug/mL (10.0-30.0) L 10/20/19 23:17 Ur Barbiturates Screen Presumptive negative 10/20/19 Unknown Ur Phencyclidine Scrn Presumptive negative 10/20/19 Unknown Ur Amphetamines Screen Presumptive negative 10/20/19 Unknown U Benzodiazepines Scrn Presumptive negative 10/20/19 Unknown Urine Cocaine Screen Presumptive negative 10/20/19 Unknown U Marijuana (THC) Screen Presumptive negative 10/20/19 Unknown Drugs of Abuse Note Disclamer 10/20/19 Unknown Plasma/Serum Alcohol < 0.01 % (0-0.07) 10/20/19 23:17 Coronavirus (PCR) Negative (Negative) 10/23/19 Unknown Watson/IV: Voiding Method Condom Catheter IV Catheter Type [Left Forearm Peripheral IV ] Active Medications - Current Medications Current Medications: Generic Name Dose Route Start Last Admin Trade Name Freq PRN Reason Stop Dose Admin Acetaminophen 650 mg 10/21/19 02:47 Tylenol PO Q4H PRN Pain MILD(1-3)/Fever >100.5/CORREA Acetaminophen 650 mg 10/21/19 07:58 10/21/19 07:59 Tylenol [place] 650 mg Q6H PRN Administration Pain, Mild (1-3) Heparin Sodium (Porcine) 5,000 unit 10/21/19 06:00 10/24/19 15:23 Heparin SUB-Q 5,000 unit Q8HR JULIANNA Administration Sodium Chloride 1,000 mls @ 125 mls/hr 10/21/19 03:00 10/23/19 06:03 Nacl 0.9% 1000 Ml IV Infused DIRECT JULIANNA Infusion Ceftriaxone Sodium 1 gm in 50 mls @ 100 mls/hr 10/21/19 10:00 10/24/19 11:00 Rocephin/Ns 1 Gm/50 Ml IV 10/25/19 10:29 100 mls/hr Q24HR JULIANNA Administration Protocol Valproate Sodium 500 mg/ 105 mls @ 100 mls/hr 10/22/19 13:00 10/23/19 22:44 Sodium Chloride IV 100 mls/hr Q12HR JULIANNA Administration Lorazepam 2 mg 10/23/19 18:29 Ativan IV Q4H PRN Agitation Magnesium Hydroxide 30 ml 10/21/19 02:47 Milk Of Magnesia PO Q4H PRN Constipation Ondansetron HCl 4 mg 10/21/19 02:47 Zofran IV Q8H PRN Nausea And Vomiting Sodium Chloride 10 ml 10/21/19 10:00 10/23/19 22:45 Sodium Chloride Flush Syringe 10 Ml IV 10 ml BID JULIANNA Administration Sodium Chloride 10 ml 10/21/19 02:47 Sodium Chloride Flush Syringe 10 Ml IV PRN PRN LINE FLUSH Nutrition/Malnutrition Assess - Dietary Evaluation Nutrition/Malnutrition Findings: Nutrition Notes Start: 10/22/19 14:52 Freq: Status: Active Protocol: Document 10/24/19 13:17 LM (Rec: 10/24/19 13:26 LM [id number]) Nutrition Notes Initial or Follow up Reassessment Other Pertinent Diagnosis UTI, AMS, ETOH dependence Current Diet pureed Labs/Tests Reviewed Pertinent Medications Reviewed Height 5 ft 11 in Weight 86 kg [place] Body Weight (kg) 78.18 BMI 26.4 Weight Status Overweight Subjective/Other Information Per RN notes pt tolerated pureed diet and ate 50% yesterday. Pt stated he did not eat breakfast this AM but has a good appetite. Burn Absent Trauma Absent Current % PO Negligible Minimum of two criteria No physical signs of malnutrition #1 Nutrition Diagnosis Inadequate oral intake Diagnosis Progress(for reassessment Continues documentation) Is patient on ventilator? No Is Patient Ambulatory and/or Out of Bed No REE-([facility]-confined to bed) 860 Calculation Used for Recommendations [facility] Additional Notes Protein: 86-103g (1-1.2g/kg) Fluid: 1ml/kcal Nutrition Intervention Change Diet Order: continue pureed Add Supplement/Snack (indicate name/kcal Ensure Enlive BID /protein ) Provides kCal: 700 Provides Protein (gm) 40 Goal #1 Meet at least 75% of energy and protein needs Anticipated Discharge Needs: unable to determine at this time Follow-Up By: 10/28/19 Additional Comments F/U for PO/ONS intakes
[2019-10-24] MEDS: LORazepam 2 MG/ML VIAL IV PRN (23:48)
[2019-10-24] MEDS: VALPROATE SODIUM 500 MG in SODIUM CHLORIDE 0.9% 100 ML IV SCH ×2 (23:52)
[2019-10-25] MEDS: SODIUM CHLORIDE 0.9% 1000 ML 1,000 ML IV SCH ×2 (03:07→10:32)
[2019-10-25] MEDS: HEPARIN 5,000 UNIT/1 ML VIAL SUB-Q SCH ×3 (06:09→21:19)
[2019-10-25] MEDS: cefTRIAXone/NS 1 GM/50 ML 1 GM/50 ML BAG IV SCH (10:32)
[2019-10-25] MEDS: VALPROATE SODIUM 500 MG in SODIUM CHLORIDE 0.9% 100 ML IV SCH ×2 (10:34→21:19)
--- NOTE | 2019-10-25 12:31 | Progress Note ---
Assessment and Plan Assessment and plan: Toxic metabolic encephalopathy; Multifactorial, hyponatremia, acute psychosis due to alcohol intoxication Neurochecks, patient seen sleeping/lethargic, easy to arouse Agitation and restless noted. Discussed with pt nurse-patient condition improving Will continue CIWA protocol, IV fluids, supportive care Chest x-ray; No acute abnormality CT head; no acute abnormality CT C-spine; F/u with report Severe hyponatremia; resolved Continue IV hydration Monitor sodium level Acute psychosis; posible due alcohol intoxucation Continue bilateral arm restrain for safety PRN medications Psych consulted-f/u with reces. seizure precaution Safety and fall precaution at all times Pt/OT consult for dic recommendation DVT prophylaxis; Lovenox Restraint for safety PT OT, DC planning Possible discharge in 1 to 2 days if stable Restraint for safety Monitor closely and adjust management as needed Plan of care reviewed with the patient'S nurse Disposition: Per hospital cause F/U with Pt/OT recommendation- HHS vs placement when stable Brief history :64-year-old male admitted through the emergency room with altered mental status, possible alcohol withdrawal symptoms and recurren falls. Patient is more alert ,PT working with him,Psych following ,advance diet and dc when stable Hospitalist Physical - Constitutional Vitals: Temp Pulse Resp BP Pulse Ox 98.5 F 60 18 143/74 96 10/25/19 04:59 10/24/19 22:00 10/25/19 04:59 10/25/19 04:59 10/25/19 08:50 General appearance: Present: mild distress, well-nourished - Respiratory Respiratory: bilateral: rhonchi (coarse sound noted on auscultation) - Cardiovascular Heart rate: 64 - Psychiatric Psychiatric: agitated (patient sedated but easy to arouse. agited and restless when aroused) - Neurologic Neurologic: moves all extremities HEART Score - HEART Score Troponin: Troponin T < 0.010 ng/mL (0.00-0.029) 10/20/19 23:17 Results - Labs CBC & Chem 7: 10/22/19 03:59 10/22/19 03:59 Labs: Laboratory Last Values WBC 13.4 K/mm3 (4.5-11.0) H 10/22/19 03:59 RBC 4.64 M/mm3 (3.65-5.03) 10/22/19 03:59 Hgb 13.9 gm/dl (11.8-15.2) 10/22/19 03:59 Hct 41.1 % (35.5-45.6) 10/22/19 03:59 MCV 89 fl (84-94) 10/22/19 03:59 MCH 30 pg (28-32) 10/22/19 03:59 MCHC 34 % (32-34) 10/22/19 03:59 RDW 14.9 % (13.2-15.2) 10/22/19 03:59 Plt Count 179 K/mm3 (140-440) 10/22/19 03:59 Lymph % (Auto) 8.9 % (13.4-35.0) L 10/22/19 03:59 [place] % (Auto) 8.9 % (0.0-7.3) H 10/22/19 03:59 Eos % (Auto) 0.0 % (0.0-4.3) 10/22/19 03:59 Baso % (Auto) 0.1 % (0.0-1.8) 10/22/19 03:59 Lymph # 1.2 K/mm3 (1.2-5.4) 10/22/19 03:59 [place] # 1.2 K/mm3 (0.0-0.8) H 10/22/19 03:59 Eos # 0.0 K/mm3 (0.0-0.4) 10/22/19 03:59 Baso # 0.0 K/mm3 (0.0-0.1) 10/22/19 03:59 Seg Neutrophils % 82.1 % (40.0-70.0) H 10/22/19 03:59 Seg Neutrophils # 11.0 K/mm3 (1.8-7.7) H 10/22/19 03:59 PT 14.4 Sec. (12.2-14.9) 10/22/19 03:59 INR 1.14 (0.87-1.13) H 10/22/19 03:59 APTT 28.2 Sec. (24.2-36.6) 10/20/19 23:17 D-Dimer 707.81 ng/mlDDU (0-234) H 10/22/19 10:32 Sodium 138 mmol/L (137-145) D 10/22/19 03:59 Potassium 3.5 mmol/L (3.6-5.0) L 10/22/19 03:59 Chloride 100.9 mmol/L (98-107) 10/22/19 03:59 Carbon Dioxide 23 mmol/L (22-30) 10/22/19 03:59 Anion Gap 18 mmol/L 10/22/19 03:59 BUN 2 mg/dL (9-20) L 10/22/19 03:59 Creatinine 0.6 mg/dL (0.8-1.5) L 10/22/19 03:59 Estimated GFR > 60 ml/min 10/22/19 03:59 BUN/Creatinine Ratio 3 % 10/22/19 03:59 Glucose 72 mg/dL (75-100) L 10/22/19 03:59 POC Glucose 117 (70-105) H 10/20/19 22:52 Calcium 8.9 mg/dL (8.4-10.2) D 10/22/19 03:59 Ferritin 238.1 ng/mL (13.0-400.0) 10/22/19 10:32 Total Bilirubin 0.80 mg/dL (0.1-1.2) 10/20/19 23:17 Direct Bilirubin < 0.2 mg/dL (0-0.2) 10/20/19 23:17 Indirect Bilirubin 0.6 mg/dL 10/20/19 23:17 AST 19 units/L (5-40) 10/20/19 23:17 ALT 10 units/L (7-56) 10/20/19 23:17 Alkaline Phosphatase 47 units/L (35-129) 10/20/19 23:17 Lactate Dehydrogenase 277 units/L (91-180) H 10/22/19 10:32 Total Creatine Kinase 687 units/L (55-170) H 10/21/19 02:17 Troponin T < 0.010 ng/mL (0.00-0.029) 10/20/19 23:17 C-Reactive Protein 18.60 mg/dL (0.00-1.30) H 10/22/19 10:32 Total Protein 5.6 g/dL (6.3-8.2) L 10/20/19 23:17 Albumin 3.7 g/dL (3.9-5) L 10/20/19 23:17 Albumin/Globulin Ratio 1.9 % 10/20/19 23:17 TSH 2.560 mlU/mL (0.270-4.200) 10/21/19 02:27 Urine Color Yellow (Yellow) 10/20/19 Unknown Urine Turbidity Slightly-cloudy (Clear) 10/20/19 Unknown Urine pH 5.0 (5.0-7.0) 10/20/19 Unknown Ur Specific [place] 1.013 (1.003-1.030) 10/20/19 Unknown Urine Protein 30 mg/dl mg/dL (Negative) 10/20/19 Unknown Urine Glucose (UA) Neg mg/dL (Negative) 10/20/19 Unknown Urine Ketones 80 mg/dL (Negative) 10/20/19 Unknown Urine Blood Mod (Negative) 10/20/19 Unknown Urine Nitrite Neg (Negative) 10/20/19 Unknown Urine Bilirubin Neg (Negative) 10/20/19 Unknown Urine Urobilinogen < 2.0 mg/dL (<2.0) 10/20/19 Unknown Ur Leukocyte Esterase Neg (Negative) 10/20/19 Unknown Urine WBC (Auto) 4.0 /HPF (0.0-6.0) 10/20/19 Unknown Urine RBC (Auto) 4.0 /HPF (0.0-6.0) 10/20/19 Unknown U Epithel Cells (Auto) < 1.0 /HPF (0-13.0) 10/20/19 Unknown Urine Bacteria (Auto) 2+ /HPF (Negative) 10/20/19 Unknown Urine Mucus Few /HPF 10/20/19 Unknown Urine Yeast (Budding) 1+ /HPF 10/20/19 Unknown Urine Sperm Few /HPF ([employer]) 10/20/19 Unknown Urine Osmolality 99 Mosm/kg 10/21/19 18:00 Urine Sodium 11 mmol/L 10/21/19 18:00 Salicylates < 0.3 mg/dL (2.8-20.0) L 10/20/19 23:17 Urine Opiates Screen Presumptive negative 10/20/19 Unknown Urine Methadone Screen Presumptive negative 10/20/19 Unknown Acetaminophen < 5.0 ug/mL (10.0-30.0) L 10/20/19 23:17 Ur Barbiturates Screen Presumptive negative 10/20/19 Unknown Ur Phencyclidine Scrn Presumptive negative 10/20/19 Unknown Ur Amphetamines Screen Presumptive negative 10/20/19 Unknown U Benzodiazepines Scrn Presumptive negative 10/20/19 Unknown Urine Cocaine Screen Presumptive negative 10/20/19 Unknown U Marijuana (THC) Screen Presumptive negative 10/20/19 Unknown Drugs of Abuse Note Disclamer 10/20/19 Unknown Plasma/Serum Alcohol < 0.01 % (0-0.07) 10/20/19 23:17 Coronavirus (PCR) Negative (Negative) 10/23/19 Unknown Watson/IV: Voiding Method Condom Catheter IV Catheter Type [Right Peripheral IV Antecubital] IV Catheter Type [Left Forearm Peripheral IV ] Active Medications - Current Medications Current Medications: Generic Name Dose Route Start Last Admin Trade Name Freq PRN Reason Stop Dose Admin Acetaminophen 650 mg 10/21/19 02:47 Tylenol PO Q4H PRN Pain MILD(1-3)/Fever >100.5/CORREA Acetaminophen 650 mg 10/21/19 07:58 10/21/19 07:59 Tylenol AR 650 mg Q6H PRN Administration Pain, Mild (1-3) Heparin Sodium (Porcine) 5,000 unit 10/21/19 06:00 10/25/19 06:09 Heparin SUB-Q 5,000 unit Q8HR JULIANNA Administration Sodium Chloride 1,000 mls @ 125 mls/hr 10/21/19 03:00 10/25/19 10:32 Nacl 0.9% 1000 Ml IV 125 mls/hr DIRECT JULIANNA Administration Valproate Sodium 500 mg/ 105 mls @ 100 mls/hr 10/22/19 13:00 10/25/19 10:34 Sodium Chloride IV 100 mls/hr Q12HR JULIANNA Administration Lorazepam 2 mg 10/23/19 18:29 10/24/19 23:48 Ativan IV 2 mg Q4H PRN Administration Agitation Magnesium Hydroxide 30 ml 10/21/19 02:47 Milk Of Magnesia PO Q4H PRN Constipation Ondansetron HCl 4 mg 10/21/19 02:47 Zofran IV Q8H PRN Nausea And Vomiting Sodium Chloride 10 ml 10/21/19 10:00 10/25/19 10:33 Sodium Chloride Flush Syringe 10 Ml IV 10 ml BID JULIANNA Administration Sodium Chloride 10 ml 10/21/19 02:47 Sodium Chloride Flush Syringe 10 Ml IV PRN PRN LINE FLUSH Nutrition/Malnutrition Assess - Dietary Evaluation Nutrition/Malnutrition Findings: Nutrition Notes Start: 10/22/19 14:52 Freq: Status: Active Protocol: Document 10/24/19 13:17 LM (Rec: 10/24/19 13:26 LM [id number]) Nutrition Notes Initial or Follow up Reassessment Other Pertinent Diagnosis UTI, AMS, ETOH dependence Current Diet pureed Labs/Tests Reviewed Pertinent Medications Reviewed Height 5 ft 11 in Weight 86 kg [place] Body Weight (kg) 78.18 BMI 26.4 Weight Status Overweight Subjective/Other Information Per RN notes pt tolerated pureed diet and ate 50% yesterday. Pt stated he did not eat breakfast this AM but has a good appetite. Burn Absent Trauma Absent Current % PO Negligible Minimum of two criteria No physical signs of malnutrition #1 Nutrition Diagnosis Inadequate oral intake Diagnosis Progress(for reassessment Continues documentation) Is patient on ventilator? No Is Patient Ambulatory and/or Out of Bed No REE-([facility]-confined to bed) [phone] Calculation Used for Recommendations [facility] Additional Notes Protein: 86-103g (1-1.2g/kg) Fluid: 1ml/kcal Nutrition Intervention Change Diet Order: continue pureed Add Supplement/Snack (indicate name/kcal Ensure Enlive BID /protein ) Provides kCal: 700 Provides Protein (gm) 40 Goal #1 Meet at least 75% of energy and protein needs Anticipated Discharge Needs: unable to determine at this time Follow-Up By: 10/28/19 Additional Comments F/U for PO/ONS intakes
[2019-10-26] MEDS: SODIUM CHLORIDE 0.9% 1000 ML 1,000 ML IV SCH ×2 (03:46→10:21)
[2019-10-26] MEDS: HEPARIN 5,000 UNIT/1 ML VIAL SUB-Q SCH ×3 (05:06→21:56)
[2019-10-26] MEDS: LORazepam 2 MG/ML VIAL IV PRN ×2 (08:02→23:42)
[2019-10-26 08:03] LABS: Basophils % (Auto) 0.8 % (0.0-1.8); Eosinophils # (Auto) 0.1 K/mm3 (0.0-0.4); Hematocrit 37.8 % (35.5-45.6); Hemoglobin 12.9 gm/dl (11.8-15.2); Lymphocytes # (Auto) 2.1 K/mm3 (1.2-5.4); Lymphocytes % (Auto) 33.8 % (13.4-35.0); Mean Corpuscular HGB Conc 34 % (32-34); Mean Corpuscular Volume 89 fl (84-94); Monocytes # (Auto) 0.7 K/mm3 (0.0-0.8); Monocytes % (Auto) 11.1 % (0.0-7.3); Platelet Count 209 K/mm3 (140-440); Red Blood Count 4.27 M/mm3 (3.65-5.03)
[2019-10-26 08:40] LABS: Alanine Aminotransferase 28 units/L (7-56); Albumin 3.2 g/dL (3.9-5); BUN/Creatinine Ratio 23; Blood Urea Nitrogen 7 mg/dL (9-20); Calcium 8.3 mg/dL (8.4-10.2); Hemolysis Index 8
--- NOTE | 2019-10-26 10:08 | History and Physical Report ---
History of Present Illness Date of admission: 10/21/19 05:45 Past History Past Medical History: other (Mental illness) Medications and Allergies Allergies Allergy/AdvReac Type Severity Reaction Status Date / Time Unable to Assess Allergy Verified 10/21/19 00:15 Active Meds: Active Medications Acetaminophen (Tylenol) 650 mg PO Q4H PRN PRN Reason: Pain MILD(1-3)/Fever >100.5/CORREA Acetaminophen (Tylenol) 650 mg VA Q6H PRN PRN Reason: Pain, Mild (1-3) Last Admin: 10/21/19 07:59 Dose: 650 mg Documented by: Heparin Sodium (Porcine) (Heparin) 5,000 unit SUB-Q Q8HR [facility] Last Admin: 10/26/19 05:06 Dose: 5,000 unit Documented by: Sodium Chloride (Nacl 0.9% 1000 Ml) 1,000 mls @ 125 mls/hr IV DIRECT [facility] Last Admin: 10/26/19 03:46 Dose: 125 mls/hr Documented by: Valproate Sodium 500 mg/ (Sodium Chloride) 105 mls @ 100 mls/hr IV Q12HR [facility] Last Admin: 10/25/19 21:19 Dose: 100 mls/hr Documented by: Lorazepam (Ativan) 2 mg IV Q4H PRN PRN Reason: Agitation Last Admin: 10/26/19 08:02 Dose: 2 mg Documented by: Magnesium Hydroxide (Milk Of Magnesia) 30 ml PO Q4H PRN PRN Reason: Constipation Ondansetron HCl (Zofran) 4 mg IV Q8H PRN PRN Reason: Nausea And Vomiting Sodium Chloride (Sodium Chloride Flush Syringe 10 Ml) 10 ml IV BID [facility] Last Admin: 10/25/19 21:19 Dose: 10 ml Documented by: Sodium Chloride (Sodium Chloride Flush Syringe 10 Ml) 10 ml IV PRN PRN PRN Reason: LINE FLUSH Exam - Constitutional Vitals: Temp Pulse Resp BP Pulse Ox 98.2 F 54 L 20 134/77 96 10/26/19 04:54 10/26/19 08:07 10/26/19 04:54 10/26/19 04:54 10/26/19 04:54 HEART Score - HEART Score Troponin: Troponin T < 0.010 ng/mL (0.00-0.029) 10/20/19 23:17 Results - Labs CBC & Chem 7: 10/26/19 07:17 10/26/19 07:17 Labs: Laboratory Last Values WBC 6.1 K/mm3 (4.5-11.0) 10/26/19 07:17 RBC 4.27 M/mm3 (3.65-5.03) 10/26/19 07:17 Hgb 12.9 gm/dl (11.8-15.2) 10/26/19 07:17 Hct 37.8 % (35.5-45.6) 10/26/19 07:17 MCV 89 fl (84-94) 10/26/19 07:17 MCH 30 pg (28-32) 10/26/19 07:17 MCHC 34 % (32-34) 10/26/19 07:17 RDW 15.0 % (13.2-15.2) 10/26/19 07:17 Plt Count 209 K/mm3 (140-440) 10/26/19 07:17 Lymph % (Auto) 33.8 % (13.4-35.0) 10/26/19 07:17 [place] % (Auto) 11.1 % (0.0-7.3) H 10/26/19 07:17 Eos % (Auto) 2.0 % (0.0-4.3) 10/26/19 07:17 Baso % (Auto) 0.8 % (0.0-1.8) 10/26/19 07:17 Lymph # 2.1 K/mm3 (1.2-5.4) 10/26/19 07:17 [place] # 0.7 K/mm3 (0.0-0.8) 10/26/19 07:17 Eos # 0.1 K/mm3 (0.0-0.4) 10/26/19 07:17 Baso # 0.0 K/mm3 (0.0-0.1) 10/26/19 07:17 Seg Neutrophils % 52.3 % (40.0-70.0) 10/26/19 07:17 Seg Neutrophils # 3.2 K/mm3 (1.8-7.7) 10/26/19 07:17 PT 14.4 Sec. (12.2-14.9) 10/22/19 03:59 INR 1.14 (0.87-1.13) H 10/22/19 03:59 APTT 28.2 Sec. (24.2-36.6) 10/20/19 23:17 D-Dimer 707.81 ng/mlDDU (0-234) H 10/22/19 10:32 Sodium 140 mmol/L (137-145) 10/26/19 07:17 Potassium 3.6 mmol/L (3.6-5.0) 10/26/19 07:17 Chloride 100.9 mmol/L (98-107) 10/26/19 07:17 Carbon Dioxide 27 mmol/L (22-30) 10/26/19 07:17 Anion Gap 16 mmol/L 10/26/19 07:17 BUN 7 mg/dL (9-20) L 10/26/19 07:17 Creatinine 0.3 mg/dL (0.8-1.5) L 10/26/19 07:17 Estimated GFR > 60 ml/min 10/26/19 07:17 BUN/Creatinine Ratio 23 % 10/26/19 07:17 Glucose 95 mg/dL (75-100) 10/26/19 07:17 POC Glucose 117 (70-105) H 10/20/19 22:52 Calcium 8.3 mg/dL (8.4-10.2) L 10/26/19 07:17 Ferritin 238.1 ng/mL (13.0-400.0) 10/22/19 10:32 Total Bilirubin 0.30 mg/dL (0.1-1.2) 10/26/19 07:17 Direct Bilirubin < 0.2 mg/dL (0-0.2) 10/20/19 23:17 Indirect Bilirubin 0.6 mg/dL 10/20/19 23:17 AST 61 units/L (5-40) H 10/26/19 07:17 ALT 28 units/L (7-56) 10/26/19 07:17 Alkaline Phosphatase 45 units/L (35-129) 10/26/19 07:17 Lactate Dehydrogenase 277 units/L (91-180) H 10/22/19 10:32 Total Creatine Kinase 687 units/L (55-170) H 10/21/19 02:17 Troponin T < 0.010 ng/mL (0.00-0.029) 10/20/19 23:17 C-Reactive Protein 18.60 mg/dL (0.00-1.30) H 10/22/19 10:32 Total Protein 5.4 g/dL (6.3-8.2) L 10/26/19 07:17 Albumin 3.2 g/dL (3.9-5) L 10/26/19 07:17 Albumin/Globulin Ratio 1.5 % 10/26/19 07:17 TSH 2.560 mlU/mL (0.270-4.200) 10/21/19 02:27 Urine Color Yellow (Yellow) 10/20/19 Unknown Urine Turbidity Slightly-cloudy (Clear) 10/20/19 Unknown Urine pH 5.0 (5.0-7.0) 10/20/19 Unknown Ur Specific [place] 1.013 (1.003-1.030) 10/20/19 Unknown Urine Protein 30 mg/dl mg/dL (Negative) 10/20/19 Unknown Urine Glucose (UA) Neg mg/dL (Negative) 10/20/19 Unknown Urine Ketones 80 mg/dL (Negative) 10/20/19 Unknown Urine Blood Mod (Negative) 10/20/19 Unknown Urine Nitrite Neg (Negative) 10/20/19 Unknown Urine Bilirubin Neg (Negative) 10/20/19 Unknown Urine Urobilinogen < 2.0 mg/dL (<2.0) 10/20/19 Unknown Ur Leukocyte Esterase Neg (Negative) 10/20/19 Unknown Urine WBC (Auto) 4.0 /HPF (0.0-6.0) 10/20/19 Unknown Urine RBC (Auto) 4.0 /HPF (0.0-6.0) 10/20/19 Unknown U Epithel Cells (Auto) < 1.0 /HPF (0-13.0) 10/20/19 Unknown Urine Bacteria (Auto) 2+ /HPF (Negative) 10/20/19 Unknown Urine Mucus Few /HPF 10/20/19 Unknown Urine Yeast (Budding) 1+ /HPF 10/20/19 Unknown Urine Sperm Few /HPF (HOTEL ENGINEER) 10/20/19 Unknown Urine Osmolality 99 Mosm/kg 10/21/19 18:00 Urine Sodium 11 mmol/L 10/21/19 18:00 Salicylates < 0.3 mg/dL (2.8-20.0) L 10/20/19 23:17 Urine Opiates Screen Presumptive negative 10/20/19 Unknown Urine Methadone Screen Presumptive negative 10/20/19 Unknown Acetaminophen < 5.0 ug/mL (10.0-30.0) L 10/20/19 23:17 Ur Barbiturates Screen Presumptive negative 10/20/19 Unknown Ur Phencyclidine Scrn Presumptive negative 10/20/19 Unknown Ur Amphetamines Screen Presumptive negative 10/20/19 Unknown U Benzodiazepines Scrn Presumptive negative 10/20/19 Unknown Urine Cocaine Screen Presumptive negative 10/20/19 Unknown U Marijuana (THC) Screen Presumptive negative 10/20/19 Unknown Drugs of Abuse Note Disclamer 10/20/19 Unknown Plasma/Serum Alcohol < 0.01 % (0-0.07) 10/20/19 23:17 Coronavirus (PCR) Negative (Negative) 10/23/19 Unknown Watson/IV: Voiding Method Condom Catheter IV Catheter Type [Right Peripheral IV Antecubital] IV Catheter Type [Left Forearm Peripheral IV ] Assessment and Plan Assessment and plan: Toxic metabolic encephalopathy; Multifactorial, hyponatremia, acute psychosis due to alcohol intoxication Neurochecks, patient seen sleeping/lethargic, easy to arouse Agitation and restless noted. Discussed with pt nurse-patient condition improving Will continue CIWA protocol, IV fluids, supportive care Chest x-ray; No acute abnormality CT head; no acute abnormality CT C-spine; F/u with report Severe hyponatremia; resolved Continue IV hydration Monitor sodium level Acute psychosis; posible due alcohol intoxucation Continue bilateral arm restrain for safety PRN medications Psych consulted-f/u with reces. seizure precaution Safety and fall precaution at all times Pt/OT consult for dic recommendation DVT prophylaxis; Lovenox Restraint for safety PT OT, DC planning Possible discharge in 1 to 2 days if stable Restraint for safety Monitor closely and adjust management as needed Plan of care reviewed with the patient'S nurse Disposition: Per hospital cause F/U with Pt/OT recommendation- HHS vs placement when stable Brief history :64-year-old male admitted through the emergency room with altered mental status, possible alcohol withdrawal symptoms and recurren falls. Patient is more alert ,PT working with him,Psych following ,advance diet and dc when stable - Patient Problems (1) Altered mental status Current Visit: Yes Status: Acute
--- NOTE | 2019-10-26 10:10 | Progress Note ---
Assessment and Plan Assessment and Plan Assessment and plan: Toxic metabolic encephalopathy; Multifactorial, hyponatremia, acute psychosis due to alcohol intoxication Neurochecks, patient seen sleeping/lethargic, easy to arouse Agitation and restless noted. Discussed with pt nurse-patient condition improving Will continue CIWA protocol, IV fluids, supportive care Chest x-ray; No acute abnormality CT head; no acute abnormality CT C-spine; F/u with report Severe hyponatremia; resolved Continue IV hydration Monitor sodium level Acute psychosis; posible due alcohol intoxucation Continue bilateral arm restrain for safety PRN medications Psych consulted-f/u with reces. seizure precaution Safety and fall precaution at all times Pt/OT consult for dic recommendation DVT prophylaxis; Lovenox Restraint for safety PT OT, DC planning Possible discharge in 1 to 2 days if stable Restraint for safety Monitor closely and adjust management as needed Plan of care reviewed with the patient'S nurse Disposition: Per hospital cause F/U with Pt/OT recommendation- HHS vs placement when stable Brief history :64-year-old male admitted through the emergency room with altered mental status, possible alcohol withdrawal symptoms and recurren falls. Patient is more alert ,PT working with him,Psych following ,advance diet and dc when stable - Patient Problems (1) Altered mental status Current Visit: Yes Status: Acute Subjective Interval history: Patient sedated with bilateral arm restraint Will continue alcohol withdrawal protocol Objective - Constitutional Vitals: Vital Signs - 12hr 10/26/19 10/26/19 10/26/19 03:03 04:54 08:07 Temperature 98.2 F Pulse Rate 45 L 61 Pulse Rate [ 54 L From Monitor] Respiratory 20 Rate Blood Pressure 134/77 O2 Sat by Pulse 96 Oximetry - Psychiatric Psychiatric: agitated (sedation-bilateral arm restraint) - Labs CBC & Chem 7: 10/26/19 07:17 10/26/19 07:17 Labs: Abnormal lab results 10/26/19 10/26/19 Range/Units 07:17 07:17 [place] % (Auto) 11.1 H (0.0-7.3) % BUN 7 L (9-20) mg/dL Creatinine 0.3 L (0.8-1.5) mg/dL Calcium 8.3 L (8.4-10.2) mg/dL AST 61 H (5-40) units/L Total Protein 5.4 L (6.3-8.2) g/dL Albumin 3.2 L (3.9-5) g/dL HEART Score - HEART Score Troponin: Troponin T < 0.010 ng/mL (0.00-0.029) 10/20/19 23:17
[2019-10-26] MEDS: VALPROATE SODIUM 500 MG in SODIUM CHLORIDE 0.9% 100 ML IV SCH ×2 (10:17→21:56)
[2019-10-27] MEDS: SODIUM CHLORIDE 0.9% 1000 ML 1,000 ML IV SCH ×3 (00:40→19:07)
[2019-10-27] MEDS: HEPARIN 5,000 UNIT/1 ML VIAL SUB-Q SCH ×3 (05:00→23:06)
[2019-10-27] MEDS: VALPROATE SODIUM 500 MG in SODIUM CHLORIDE 0.9% 100 ML IV SCH ×2 (09:50→23:06)
--- NOTE | 2019-10-27 12:38 | Progress Note ---
Assessment and Plan Assessment and Plan Assessment and plan: Toxic metabolic encephalopathy; Multifactorial, hyponatremia, acute psychosis due to alcohol intoxication Neurochecks, patient seen sleeping/lethargic, easy to arouse. Discussed with pt nurse-patient was awake ealier and trying to get out of the bed Continue bilateral arm restraint for safety Will continue CIWA protocol, IV fluids, supportive care Chest x-ray; No acute abnormality CT head; no acute abnormality CT C-spine; F/u with report Severe hyponatremia; resolved Continue IV hydration Monitor sodium level Acute psychosis; posible due alcohol intoxucation Continue bilateral arm restrain for safety PRN medications Psych consulted-f/u with reces. seizure precaution Safety and fall precaution at all times Pt/OT consult for dic recommendation DVT prophylaxis; Lovenox Restraint for safety Monitor closely and adjust management as needed Plan of care reviewed with the patient'S nurse Disposition: Per hospital cause F/U with Pt/OT recommendation- HHS vs placement when stable 10/27/19-speech pathologist to assess for oral feeding today. Patient still has agitation and restlessness while awake. We will plan on discharge when patient is stable. Alcohol withdrawal protocol in progress. - Patient Problems (1) Altered mental status Current Visit: Yes Status: Acute Subjective Interval history: Patient seen sleeping. Discussed with patient nurse she said patient was awake in the morning was treated with sedative during the night. Patient is still confused when awake. Attempted to arouse patient opens eyes and goes back to sleep. Patient not in any distress. Discussed with patient nurse, patient is still confused and restless sometimes when awake and trying to get out of the bed. will continue bilateral restrainst. speech pathologist to do swallow evaluation and will follow up with recommendation for feeding. will continue with alcohol withdrawal protocol. Objective - Constitutional Vitals: Vital Signs - 12hr 10/27/19 10/27/19 10/27/19 02:40 03:55 09:24 Temperature 98.4 F Pulse Rate 49 L 57 L Respiratory 19 Rate Blood Pressure 122/68 O2 Sat by Pulse 97 97 Oximetry General appearance: Present: no acute distress - Respiratory Respiratory effort: normal - Cardiovascular Heart rate: 57 Extremities: no ischemia - Psychiatric Psychiatric: agitated (Patient is a restless and has agitation while awake) - Labs CBC & Chem 7: 10/26/19 07:17 10/26/19 07:17 HEART Score - HEART Score Troponin: Troponin T < 0.010 ng/mL (0.00-0.029) 10/20/19 23:17
[2019-10-28] MEDS: SODIUM CHLORIDE 0.9% 1000 ML 1,000 ML IV SCH ×2 (03:26→10:57)
[2019-10-28] MEDS: HEPARIN 5,000 UNIT/1 ML VIAL SUB-Q SCH ×3 (05:20→21:48)
[2019-10-28] MEDS: VALPROATE SODIUM 500 MG in SODIUM CHLORIDE 0.9% 100 ML IV SCH ×2 (10:59→21:48)
[2019-10-29] MEDS: HEPARIN 5,000 UNIT/1 ML VIAL SUB-Q SCH ×3 (05:13→22:36)
--- NOTE | 2019-10-29 08:20 | Progress Note ---
Assessment and Plan Assessment and Plan Assessment and plan: Toxic metabolic encephalopathy; Multifactorial, hyponatremia, acute psychosis due to alcohol intoxication Neurochecks, patient seen sleeping/lethargic, easy to arouse. Discussed with pt nurse-patient was awake ealier and trying to get out of the bed Continue bilateral arm restraint for safety Will continue CIWA protocol, IV fluids, supportive care Chest x-ray; No acute abnormality CT head; no acute abnormality CT C-spine; F/u with report Severe hyponatremia; resolved Continue IV hydration Monitor sodium level Acute psychosis; posible due alcohol intoxucation Continue bilateral arm restrain for safety PRN medications Psych consulted-f/u with reces. seizure precaution Safety and fall precaution at all times Pt/OT consult for dic recommendation DVT prophylaxis; Lovenox Restraint for safety Monitor closely and adjust management as needed Plan of care reviewed with the patient'S nurse Disposition: Per hospital cause F/U with Pt/OT recommendation- HHS vs placement when stable 10/27/19-speech pathologist to assess for oral feeding today. Patient still has agitation and restlessness while awake. Pured diet We will plan on discharge when patient is stable. Alcohol withdrawal protocol in progress . Subjective Date of service: 10/28/19 Principal diagnosis: Toxic metabolic encephalopathy Interval history: Patient alert and oriented to some extent. Discussed with patient nurse she said patient was awake in the morning was treated with sedative during the night. Patient is still confused when awake. Attempted to arouse patient opens eyes and goes back to sleep. Patient not in any distress. Discussed with patient nurse, patient is still confused and restless sometimes when awake and trying to get out of the bed. will continue bilateral restrainst. speech pathologist to do swallow evaluation and will follow up with recommendation for feeding. will continue with alcohol withdrawal protocol. Objective - Constitutional Vitals: Vital Signs - 12hr 10/28/19 10/28/19 10/29/19 22:00 22:49 04:33 Temperature 99.2 F 98.3 F Pulse Rate 57 L 54 L 61 Respiratory 18 20 Rate Blood Pressure 138/67 140/57 O2 Sat by Pulse 91 95 Oximetry General appearance: Present: no acute distress, well-nourished - EENT Eyes: PERRL, EOM intact ENT: hearing intact, clear oral mucosa Ears: bilateral: normal - Neck Neck: supple, normal ROM - Respiratory Respiratory effort: normal Respiratory: bilateral: CTA - Breasts Breasts: normal - Cardiovascular Rhythm: regular Heart Sounds: Present: S1 & S2. Absent: gallop, rub Extremities: pulses intact, No edema, normal color, Full ROM - Gastrointestinal General gastrointestinal: Present: soft, non-tender, non-distended, normal bowel sounds - Genitourinary Male genitourinary: normal - Integumentary Integumentary: clear, warm, dry - Musculoskeletal Musculoskeletal: 1, strength equal bilaterally - Neurologic Neurologic: moves all extremities - Psychiatric Psychiatric: memory intact, appropriate mood/affect, intact judgment & insight - Labs CBC & Chem 7: 10/26/19 07:17 10/26/19 07:17 HEART Score - HEART Score Troponin: Troponin T < 0.010 ng/mL (0.00-0.029) 10/20/19 23:17
[2019-10-29] MEDS: VALPROATE SODIUM 500 MG in SODIUM CHLORIDE 0.9% 100 ML IV SCH ×2 (10:06→22:36)
[2019-10-29] MEDS: SODIUM CHLORIDE 0.9% 1000 ML 1,000 ML IV SCH ×2 (11:46→23:39)
--- NOTE | 2019-10-29 21:02 | Progress Note ---
Assessment and Plan Assessment and Plan Assessment and plan: Toxic metabolic encephalopathy; Multifactorial, hyponatremia, acute psychosis due to alcohol intoxication Neurochecks, patient seen sleeping/lethargic, easy to arouse. Discussed with pt nurse-patient was awake ealier and trying to get out of the bed Continue bilateral arm restraint for safety Will continue CIWA protocol, IV fluids, supportive care Chest x-ray; No acute abnormality CT head; no acute abnormality CT C-spine; F/u with report Severe hyponatremia; resolved Continue IV hydration Monitor sodium level Acute psychosis; posible due alcohol intoxucation Continue bilateral arm restrain for safety PRN medications Psych consulted-f/u with reces. seizure precaution Safety and fall precaution at all times Pt/OT consult for dic recommendation DVT prophylaxis; Lovenox Restraint for safety Monitor closely and adjust management as needed Plan of care reviewed with the patient'S nurse Disposition: Per hospital cause F/U with Pt/OT recommendation- HHS vs placement when stable 10/27/19-speech pathologist to assess for oral feeding today. Patient still has agitation and restlessness while awake. Pured diet We will plan on discharge when patient is stable. Alcohol withdrawal protocol in progress 10/29/2019 Patient able to eat 50% of the tray Electrolytes are normal Patient is ready for discharge Patient to go to personal jail/intermediate .Discussed with rn case manager Patient medically cleared for discharge Subjective Date of service: 10/29/19 Principal diagnosis: Toxic metabolic encephalopathy Interval history: Patient alert and oriented to some extent. Discussed with patient nurse she said patient was awake in the morning was treated with sedative during the night. Patient is still confused when awake. Attempted to arouse patient opens eyes and goes back to sleep. Patient not in any distress. Discussed with patient nurse, patient is still confused and restless sometimes when awake and trying to get out of the bed. will continue bilateral restrainst. speech pathologist to do swallow evaluation and will follow up with recommendation for feeding. will continue with alcohol withdrawal protocol. Patient alert but confused Ate 50% of the tray Objective - Constitutional Vitals: Vital Signs - 12hr 10/29/19 10/29/19 11:50 16:33 Temperature 98.4 F 98.0 F Pulse Rate 56 L 55 L Respiratory 20 20 Rate Blood Pressure 155/77 152/67 O2 Sat by Pulse 93 93 Oximetry General appearance: Present: no acute distress, well-nourished - EENT Eyes: PERRL, EOM intact ENT: hearing intact, clear oral mucosa Ears: bilateral: normal - Neck Neck: supple, normal ROM - Respiratory Respiratory effort: normal Respiratory: bilateral: CTA - Breasts Breasts: normal - Cardiovascular Heart rate: 78 Rhythm: regular Heart Sounds: Present: S1 & S2. Absent: gallop, rub Extremities: pulses intact, No edema, normal color, Full ROM - Gastrointestinal General gastrointestinal: Present: soft, non-tender, non-distended, normal bowel sounds - Genitourinary Male genitourinary: normal - Integumentary Integumentary: clear, warm, dry - Musculoskeletal Musculoskeletal: generalized weakness - Neurologic Neurologic: moves all extremities - Psychiatric Psychiatric: appropriate mood/affect, intact judgment & insight, memory intact, other (Alert but not oriented able to eat today) - Labs CBC & Chem 7: 10/26/19 07:17 10/26/19 07:17 HEART Score - HEART Score Troponin: Troponin T < 0.010 ng/mL (0.00-0.029) 10/20/19 23:17
[2019-10-29] MEDS ORDERED: VALPROIC ACID 250 MG CAP PO SCH (22:00)
[2019-10-29] MEDS: LORazepam 2 MG/ML VIAL IV PRN (23:38)
[2019-10-30] MEDS: HEPARIN 5,000 UNIT/1 ML VIAL SUB-Q SCH ×3 (05:16→22:21)
[2019-10-30] MEDS: VALPROATE SODIUM 500 MG in SODIUM CHLORIDE 0.9% 100 ML IV SCH (10:13)
--- NOTE | 2019-10-30 12:04 | Progress Note ---
Subjective Date of service: 10/30/19 Principal diagnosis: Toxic metabolic encephalopathy Interval history: Assessment and plan: acute metabolic encephalopathy; Multifactorial, hyponatremia, acute psychosis due to alcohol intoxication Neurochecks, patient seen sleeping/lethargic, can be aroused Apparently was given Haldol last night secondary to agitation Continue bilateral arm restraint for safety Discontinue CIWA protocol, started on diet Chest x-ray; No acute abnormality CT head; no acute abnormality Severe hyponatremia; resolved Continue IV hydration Monitor sodium level prn Acute psychosis;/mood disorder posible due alcohol intoxucation Continue bilateral arm restrain for safety PRN medications Psych note reviewed seizure precaution Safety and fall precaution at all times Pt/OT consult for dic recommendation DVT prophylaxis; Lovenox Patient is restrained with soft restraints on both arms. Apparently was given Haldol last night as he was agitated. Now he is sleeping but can be aroused States " I am all right" with eyes closed. patient not in any distress. will continue bilateral arm restraints. . speech pathologist note reviewed and mateus ent has been started on pured diet. Psych note reviewed. Physical examination Patient is lethargic and sleepy No apparent distress HEENT: Normocephalic, pupils round and reactive to light, throat clear Neck: Supple, no significant adenopathy Lungs: Clear to auscultation Heart: Regular rate and rhythm Abdomen: Benign Extremities: No leg edema Neuro exam: Is limited secondary to lethargy and sedation, he moves all his extremities, no focal deficit Objective - Constitutional Vitals: Vital Signs - 12hr 10/30/19 10/30/19 02:00 05:23 Temperature 98.2 F Pulse Rate 57 L Pulse Rate [ 60 Left Apical] Respiratory 18 18 Rate Blood Pressure 129/61 O2 Sat by Pulse 92 Oximetry - Labs CBC & Chem 7: 10/26/19 07:17 10/26/19 07:17 HEART Score - HEART Score Troponin: Troponin T < 0.010 ng/mL (0.00-0.029) 10/20/19 23:17
[2019-10-30] MEDS: SODIUM CHLORIDE 0.9% 1000 ML 1,000 ML IV SCH (13:49)
[2019-10-30] MEDS: VALPROIC ACID 250 MG/5 ML ORAL LIQD PO SCH (22:19)
[2019-10-31] MEDS: HEPARIN 5,000 UNIT/1 ML VIAL SUB-Q SCH ×3 (06:00→22:04)
[2019-10-31 06:09] LABS: Hematocrit 37.6 % (35.5-45.6); Hemoglobin 12.9 gm/dl (11.8-15.2); Mean Corpuscular HGB Conc 34 % (32-34); Mean Corpuscular Volume 89 fl (84-94); Platelet Count 244 K/mm3 (140-440); Red Blood Count 4.25 M/mm3 (3.65-5.03); Red Cell Distribution Width 14.4 % (13.2-15.2)
[2019-10-31 06:29] LABS: BUN/Creatinine Ratio 16; Blood Urea Nitrogen 8 mg/dL (9-20); Calcium 8.5 mg/dL (8.4-10.2); Hemolysis Index 6
[2019-10-31] MEDS ORDERED: POTASSIUM CHLORIDE ER 20 MEQ TAB PO NR (07:28)
[2019-10-31] MEDS: VALPROIC ACID 250 MG/5 ML ORAL LIQD PO SCH ×3 (08:57→22:04)
--- NOTE | 2019-10-31 14:05 | Progress Note ---
Subjective Date of service: 10/31/19 Principal diagnosis: Toxic metabolic encephalopathy Interval history: Assessment and plan: acute metabolic encephalopathy; Significant improvement Off restraints Eating well Multifactorial, hyponatremia, acute psychosis due to alcohol intoxication patient awake and alert, no apparent distress, confused, oriented to name only, states he is 38 something years old Chest x-ray; No acute abnormality CT head; no acute abnormality Patient needs assistance with ambulation PT note unavailable but discussed with RN who in turn discussed with PT, and he apparently needs assistance with ambulation Severe hyponatremia; resolved Continue IV hydration Monitor sodium level prn Acute psychosis;/mood disorder posible due alcohol intoxucation Continue bilateral arm restrain for safety PRN medications Psych note reviewed seizure precaution Safety and fall precaution at all times Pt/OT consult for dc recommendation Patient is moderately psychotic/still impulsive per staff He needs to be evaluation of his mental status by psychiatry Contacted and left a message with psychiatry floor to reevaluate the patient DVT prophylaxis; Lovenox Patient is restrained with soft restraints on both arms. Apparently was given Haldol last night as he was agitated. Now he is sleeping but can be aroused States " I am all right" with eyes closed. patient not in any distress. will continue bilateral arm restraints. . speech pathologist note reviewed and patient has been started on pured diet. Psych note reviewed. Physical examination Patient is awake and alert, confused No apparent distress HEENT: Normocephalic, pupils round and reactive to light, throat clear Neck: Supple, no significant adenopathy Lungs: Clear to auscultation Heart: Regular rate and rhythm Abdomen: Benign Extremities: No leg edema Neuro exam: Confused, he moves all his extremities, no focal deficit Objective - Constitutional Vitals: Vital Signs - 12hr 10/31/19 10/31/19 06:07 11:14 Temperature 97.7 F 97.6 F Pulse Rate 54 L 59 L Respiratory 20 19 Rate Blood Pressure 122/66 123/68 O2 Sat by Pulse 93 94 Oximetry - Labs CBC & Chem 7: 10/31/19 05:09 10/31/19 05:09 Labs: Abnormal lab results 10/31/19 Range/Units 05:09 Potassium 3.4 L (3.6-5.0) mmol/L BUN 8 L (9-20) mg/dL Creatinine 0.5 L D (0.8-1.5) mg/dL HEART Score - HEART Score Troponin: Troponin T < 0.010 ng/mL (0.00-0.029) 10/20/19 23:17
[2019-11-01] MEDS: HEPARIN 5,000 UNIT/1 ML VIAL SUB-Q SCH ×3 (05:45→21:09)
--- NOTE | 2019-11-01 09:54 | Progress Note ---
Subjective Date of service: 11/01/19 Principal diagnosis: Toxic metabolic encephalopathy Interval history: Assessment and plan: acute metabolic encephalopathy; Significant improvement Off restraints Eating well Etiology multifactorial, including hyponatremia, acute psychosis due to alcohol intoxication patient awake and alert, no apparent distress, confused, no specific complaints Chest x-ray; No acute abnormality CT head; no acute abnormality Patient needs assistance with ambulation Reviewed caseworker note and discussed For alf facility placement Severe hyponatremia; resolved Acute psychosis;/mood disorder posibly 2/2 alcohol intoxucation Off restraints PRN medications Psych note reviewed Safety and fall precaution at all times Patient is moderately psychotic/still impulsive per staff He needs to be evaluation of his mental status by psychiatry Contacted and left a message with psychiatry floor to reevaluate the patient No follow-up yet DVT prophylaxis; Lovenox Patient is restrained with soft restraints on both arms. Apparently was given Haldol last night as he was agitated. Now he is sleeping but can be aroused States " I am all right" with eyes closed. patient not in any distress. will continue bilateral arm restraints. . speech pathologist note reviewed and patient has been started on pured diet. Psych note reviewed. 10/31 Resting, sleepy but can be aroused, no apparent distress, no complaints No acute events overnight Waiting for alf facility placement Physical examination Patient is awake and alert, confused No apparent distress HEENT: Normocephalic, pupils round and reactive to light, throat clear Neck: Supple, no significant adenopathy Lungs: Clear to auscultation Heart: Regular rate and rhythm Abdomen: Benign Extremities: No leg edema Neuro exam: Confused, he moves all his extremities, no focal deficit Objective - Constitutional Vitals: Vital Signs - 12hr 11/01/19 11/01/19 02:00 04:10 Temperature 97.3 F L Pulse Rate 60 Pulse Rate [ 67 From Monitor] Respiratory 18 18 Rate Blood Pressure 143/81 O2 Sat by Pulse 93 95 Oximetry - Labs CBC & Chem 7: 10/31/19 05:09 10/31/19 05:09 HEART Score - HEART Score Troponin: Troponin T < 0.010 ng/mL (0.00-0.029) 10/20/19 23:17
[2019-11-01] MEDS: VALPROIC ACID 250 MG/5 ML ORAL LIQD PO SCH ×2 (12:11→21:08)
[2019-11-02] MEDS: HEPARIN 5,000 UNIT/1 ML VIAL SUB-Q SCH ×3 (05:02→21:12)
--- NOTE | 2019-11-02 07:50 | Progress Note ---
Assessment and Plan Assessment and plan: --Acute metabolic encephalopathy: Present on admission multifactorial, hyponatremia,psychosis due to alcohol intoxication Symptoms significantly improved Chest x-ray; No acute abnormality CT head; no acute abnormality PT evaluated, recommend subacute Awaiting placement SNF/subacute. --Severe hyponatremia; present on admission Significantly improved --Acute psychosis/mood disorder Psych evaluated the patient, Advised valproic acid No indication for inpatient psych management, --Alcohol withdrawal symptoms; resolved Ativan as needed --DVT prophylaxis: Lovenox Monitor closely and adjust management as needed DC planning per case management, For placement Plan of care reviewed with the patient and his nurse History Interval history: Patient seen and examined medical records reviewed Patient feels better no new complaints Vital signs reviewed Awaiting placement Hospitalist Physical - Constitutional Vitals: Temp Pulse Resp BP Pulse Ox 97.4 F L 56 L 20 117/56 90 11/02/19 04:15 11/02/19 04:15 11/02/19 04:15 11/02/19 04:15 11/02/19 04:15 General appearance: Present: no acute distress, well-nourished - EENT Eyes: Present: PERRL, EOM intact - Neck Neck: Present: supple, normal ROM - Respiratory Respiratory effort: normal Respiratory: bilateral: diminished, negative: rales, rhonchi, wheezing - Cardiovascular Rhythm: regular Heart Sounds: Present: S1 & S2 - Extremities Extremities: no ischemia, No edema - Abdominal General gastrointestinal: soft, non-tender, non-distended, normal bowel sounds - Integumentary Integumentary: Present: clear, warm - Psychiatric Psychiatric: cooperative - Neurologic Neurologic: moves all extremities HEART Score - HEART Score Troponin: Troponin T < 0.010 ng/mL (0.00-0.029) 10/20/19 23:17 Results - Labs CBC & Chem 7: 10/31/19 05:09 10/31/19 05:09 Labs: Laboratory Last Values WBC 6.6 K/mm3 (4.5-11.0) 10/31/19 05:09 RBC 4.25 M/mm3 (3.65-5.03) 10/31/19 05:09 Hgb 12.9 gm/dl (11.8-15.2) 10/31/19 05:09 Hct 37.6 % (35.5-45.6) 10/31/19 05:09 MCV 89 fl (84-94) 10/31/19 05:09 MCH 30 pg (28-32) 10/31/19 05:09 MCHC 34 % (32-34) 10/31/19 05:09 RDW 14.4 % (13.2-15.2) 10/31/19 05:09 Plt Count 244 K/mm3 (140-440) 10/31/19 05:09 Lymph % (Auto) 33.8 % (13.4-35.0) 10/26/19 07:17 [place] % (Auto) 11.1 % (0.0-7.3) H 10/26/19 07:17 Eos % (Auto) 2.0 % (0.0-4.3) 10/26/19 07:17 Baso % (Auto) 0.8 % (0.0-1.8) 10/26/19 07:17 Lymph # 2.1 K/mm3 (1.2-5.4) 10/26/19 07:17 [place] # 0.7 K/mm3 (0.0-0.8) 10/26/19 07:17 Eos # 0.1 K/mm3 (0.0-0.4) 10/26/19 07:17 Baso # 0.0 K/mm3 (0.0-0.1) 10/26/19 07:17 Seg Neutrophils % 52.3 % (40.0-70.0) 10/26/19 07:17 Seg Neutrophils # 3.2 K/mm3 (1.8-7.7) 10/26/19 07:17 PT 14.4 Sec. (12.2-14.9) 10/22/19 03:59 INR 1.14 (0.87-1.13) H 10/22/19 03:59 APTT 28.2 Sec. (24.2-36.6) 10/20/19 23:17 D-Dimer 707.81 ng/mlDDU (0-234) H 10/22/19 10:32 Sodium 143 mmol/L (137-145) 10/31/19 05:09 Potassium 3.4 mmol/L (3.6-5.0) L 10/31/19 05:09 Chloride 104.3 mmol/L (98-107) 10/31/19 05:09 Carbon Dioxide 28 mmol/L (22-30) 10/31/19 05:09 Anion Gap 14 mmol/L 10/31/19 05:09 BUN 8 mg/dL (9-20) L 10/31/19 05:09 Creatinine 0.5 mg/dL (0.8-1.5) L D 10/31/19 05:09 Estimated GFR > 60 ml/min 10/31/19 05:09 BUN/Creatinine Ratio 16 % 10/31/19 05:09 Glucose 92 mg/dL (75-100) 10/31/19 05:09 POC Glucose 117 (70-105) H 10/20/19 22:52 Calcium 8.5 mg/dL (8.4-10.2) 10/31/19 05:09 Ferritin 238.1 ng/mL (13.0-400.0) 10/22/19 10:32 Total Bilirubin 0.30 mg/dL (0.1-1.2) 10/26/19 07:17 Direct Bilirubin < 0.2 mg/dL (0-0.2) 10/20/19 23:17 Indirect Bilirubin 0.6 mg/dL 10/20/19 23:17 AST 61 units/L (5-40) H 10/26/19 07:17 ALT 28 units/L (7-56) 10/26/19 07:17 Alkaline Phosphatase 45 units/L (35-129) 10/26/19 07:17 Lactate Dehydrogenase 277 units/L (91-180) H 10/22/19 10:32 Total Creatine Kinase 687 units/L (55-170) H 10/21/19 02:17 Troponin T < 0.010 ng/mL (0.00-0.029) 10/20/19 23:17 C-Reactive Protein 18.60 mg/dL (0.00-1.30) H 10/22/19 10:32 Total Protein 5.4 g/dL (6.3-8.2) L 10/26/19 07:17 Albumin 3.2 g/dL (3.9-5) L 10/26/19 07:17 Albumin/Globulin Ratio 1.5 % 10/26/19 07:17 TSH 2.560 mlU/mL (0.270-4.200) 10/21/19 02:27 Urine Color Yellow (Yellow) 10/20/19 Unknown Urine Turbidity Slightly-cloudy (Clear) 10/20/19 Unknown Urine pH 5.0 (5.0-7.0) 10/20/19 Unknown Ur Specific [place] 1.013 (1.003-1.030) 10/20/19 Unknown Urine Protein 30 mg/dl mg/dL (Negative) 10/20/19 Unknown Urine Glucose (UA) Neg mg/dL (Negative) 10/20/19 Unknown Urine Ketones 80 mg/dL (Negative) 10/20/19 Unknown Urine Blood Mod (Negative) 10/20/19 Unknown Urine Nitrite Neg (Negative) 10/20/19 Unknown Urine Bilirubin Neg (Negative) 10/20/19 Unknown Urine Urobilinogen < 2.0 mg/dL (<2.0) 10/20/19 Unknown Ur Leukocyte Esterase Neg (Negative) 10/20/19 Unknown Urine WBC (Auto) 4.0 /HPF (0.0-6.0) 10/20/19 Unknown Urine RBC (Auto) 4.0 /HPF (0.0-6.0) 10/20/19 Unknown U Epithel Cells (Auto) < 1.0 /HPF (0-13.0) 10/20/19 Unknown Urine Bacteria (Auto) 2+ /HPF (Negative) 10/20/19 Unknown Urine Mucus Few /HPF 10/20/19 Unknown Urine Yeast (Budding) 1+ /HPF 10/20/19 Unknown Urine Sperm Few /HPF (EMPLOYEE BENEFITS ADMINISTRATOR) 10/20/19 Unknown Urine Osmolality 99 Mosm/kg 10/21/19 18:00 Urine Sodium 11 mmol/L 10/21/19 18:00 Salicylates < 0.3 mg/dL (2.8-20.0) L 10/20/19 23:17 Urine Opiates Screen Presumptive negative 10/20/19 Unknown Urine Methadone Screen Presumptive negative 10/20/19 Unknown Acetaminophen < 5.0 ug/mL (10.0-30.0) L 10/20/19 23:17 Ur Barbiturates Screen Presumptive negative 10/20/19 Unknown Ur Phencyclidine Scrn Presumptive negative 10/20/19 Unknown Ur Amphetamines Screen Presumptive negative 10/20/19 Unknown U Benzodiazepines Scrn Presumptive negative 10/20/19 Unknown Urine Cocaine Screen Presumptive negative 10/20/19 Unknown U Marijuana (THC) Screen Presumptive negative 10/20/19 Unknown Drugs of Abuse Note Disclamer 10/20/19 Unknown Plasma/Serum Alcohol < 0.01 % (0-0.07) 10/20/19 23:17 Coronavirus (PCR) Negative (Negative) 10/23/19 Unknown Watson/IV: Voiding Method Toilet IV Catheter Type [Right Hand] INT / Saline Lock IV Catheter Type [Right Peripheral IV Antecubital] IV Catheter Type [Left Forearm Peripheral IV ] Active Medications - Current Medications Current Medications: Generic Name Dose Route Start Last Admin Trade Name Freq PRN Reason Stop Dose Admin Acetaminophen 650 mg 10/21/19 02:47 Tylenol PO Q4H PRN Pain MILD(1-3)/Fever >100.5/CORREA Acetaminophen 650 mg 10/21/19 07:58 10/21/19 07:59 Tylenol [place] 650 mg Q6H PRN Administration Pain, Mild (1-3) Heparin Sodium (Porcine) 5,000 unit 10/21/19 06:00 11/02/19 05:02 Heparin SUB-Q 5,000 unit Q8HR JULIANNA Administration Lorazepam 0.5 mg 10/30/19 11:58 Ativan PO Q4H PRN Agitation Magnesium Hydroxide 30 ml 10/21/19 02:47 Milk Of Magnesia PO Q4H PRN Constipation Ondansetron HCl 4 mg 10/21/19 02:47 Zofran IV Q8H PRN Nausea And Vomiting Sodium Chloride 10 ml 10/21/19 10:00 11/01/19 21:08 Sodium Chloride Flush Syringe 10 Ml IV 10 ml BID JULIANNA Administration Sodium Chloride 10 ml 10/21/19 02:47 Sodium Chloride Flush Syringe 10 Ml IV PRN PRN LINE FLUSH Valproic Acid 500 mg 10/30/19 22:00 11/01/19 21:08 Depakene Liq PO 500 mg BID JULIANNA Administration Nutrition/Malnutrition Assess - Dietary Evaluation Nutrition/Malnutrition Findings: Nutrition Notes Start: 10/22/19 14:52 Freq: Status: Active Protocol: Document 11/01/19 13:42 LM (Rec: 11/01/19 13:47 LM [email or web address]) Nutrition Notes Initial or Follow up Reassessment Other Pertinent Diagnosis UTI, AMS, ETOH dependence Current Diet pureed w/ nectar liq Labs/Tests K 3.4 Pertinent Medications Reviewed Height 5 ft 11 in Weight 75 kg [place] Body Weight (kg) 78.18 BMI 23.1 Weight change and time frame wt change noted Subjective/Other Information Unable to reach pt by phone. Pt with 100% intakes in chart from yesterday. MD reports state pt is eating well and off restraints. Burn Absent Trauma Absent Current % PO Negligible Minimum of two criteria No physical signs of malnutrition #1 Nutrition Diagnosis Inadequate oral intake As Evidenced by Signs and Symptoms pt with 100% intakes Diagnosis Progress(for reassessment Improved documentation) Is patient on ventilator? No Is Patient Ambulatory and/or Out of Bed No REE-([facility]-confined to bed) [phone] Calculation Used for Recommendations [facility] Additional Notes Protein: 86-103g (1-1.2g/kg) Fluid: 1ml/kcal Nutrition Intervention Change Diet Order: continue Add Supplement/Snack (indicate name/kcal Ensure Enlive BID chilled /protein ) Provides kCal: 700 Provides Protein (gm) 40 Goal #1 Meet at least 75% of energy and protein needs Anticipated Discharge Needs: unable to determine at this time Follow-Up By: 11/05/19 Additional Comments F/U for stable intakes
[2019-11-02] MEDS: VALPROIC ACID 250 MG/5 ML ORAL LIQD PO SCH ×2 (10:09→21:12)
[2019-11-02] MEDS: LORazepam 0.5 MG TAB PO PRN ×2 (19:10→23:18)
[2019-11-02] MEDS: NICOTINE 21 MG/24 HR PATCH TD SCH (19:18)
[2019-11-03] MEDS: HEPARIN 5,000 UNIT/1 ML VIAL SUB-Q SCH ×3 (05:01→21:00)
[2019-11-03] MEDS: NICOTINE 21 MG/24 HR PATCH TD SCH (09:36)
[2019-11-03] MEDS: VALPROIC ACID 250 MG/5 ML ORAL LIQD PO SCH ×2 (09:36→21:00)
--- NOTE | 2019-11-03 12:21 | Progress Note ---
Assessment and Plan Assessment and plan: --Acute metabolic encephalopathy: Present on admission multifactorial, hyponatremia,psychosis due to alcohol intoxication Symptoms significantly improved Chest x-ray; No acute abnormality CT head; no acute abnormality PT evaluated, recommend subacute Awaiting placement SNF/subacute. --Severe hyponatremia; present on admission Resolved --Acute psychosis/mood disorder Psych evaluated the patient, Advised valproic acid No indication for inpatient psych management, --Alcohol withdrawal symptoms; resolved Ativan as needed --DVT prophylaxis: Lovenox Monitor closely and adjust management as needed DC planning per case management, For placement Plan of care reviewed with the patient and his nurse Possible discharge home tomorrow if stable DC planning per case management History Interval history: I have seen and examined the patient at bedside this morning. Patient's chart, medications, vital signs reviewed Patient feels slightly better [facility]wait[facility] Patient has no new complaints Hospitalist Physical - Constitutional Vitals: Temp Pulse Resp BP Pulse Ox 98.7 F 51 L 16 92/47 92 11/03/19 04:58 11/03/19 04:58 11/03/19 04:58 11/03/19 04:58 11/03/19 04:58 General appearance: Present: no acute distress, well-nourished - EENT Eyes: Present: PERRL, EOM intact - Neck Neck: Present: supple, normal ROM - Respiratory Respiratory effort: normal Respiratory: bilateral: diminished, negative: rales, rhonchi, wheezing - Extremities Extremities: no ischemia, No edema - Abdominal General gastrointestinal: soft, non-tender, non-distended, normal bowel sounds - Integumentary Integumentary: Present: clear, warm - Psychiatric Psychiatric: appropriate mood/affect, other (Confused at times) - Neurologic Neurologic: moves all extremities HEART Score - HEART Score Troponin: Troponin T < 0.010 ng/mL (0.00-0.029) 10/20/19 23:17 Results - Labs CBC & Chem 7: 10/31/19 05:09 10/31/19 05:09 Labs: Laboratory Last Values WBC 6.6 K/mm3 (4.5-11.0) 10/31/19 05:09 RBC 4.25 M/mm3 (3.65-5.03) 10/31/19 05:09 Hgb 12.9 gm/dl (11.8-15.2) 10/31/19 05:09 Hct 37.6 % (35.5-45.6) 10/31/19 05:09 MCV 89 fl (84-94) 10/31/19 05:09 MCH 30 pg (28-32) 10/31/19 05:09 MCHC 34 % (32-34) 10/31/19 05:09 RDW 14.4 % (13.2-15.2) 10/31/19 05:09 Plt Count 244 K/mm3 (140-440) 10/31/19 05:09 Lymph % (Auto) 33.8 % (13.4-35.0) 10/26/19 07:17 [place] % (Auto) 11.1 % (0.0-7.3) H 10/26/19 07:17 Eos % (Auto) 2.0 % (0.0-4.3) 10/26/19 07:17 Baso % (Auto) 0.8 % (0.0-1.8) 10/26/19 07:17 Lymph # 2.1 K/mm3 (1.2-5.4) 10/26/19 07:17 [place] # 0.7 K/mm3 (0.0-0.8) 10/26/19 07:17 Eos # 0.1 K/mm3 (0.0-0.4) 10/26/19 07:17 Baso # 0.0 K/mm3 (0.0-0.1) 10/26/19 07:17 Seg Neutrophils % 52.3 % (40.0-70.0) 10/26/19 07:17 Seg Neutrophils # 3.2 K/mm3 (1.8-7.7) 10/26/19 07:17 PT 14.4 Sec. (12.2-14.9) 10/22/19 03:59 INR 1.14 (0.87-1.13) H 10/22/19 03:59 APTT 28.2 Sec. (24.2-36.6) 10/20/19 23:17 D-Dimer 707.81 ng/mlDDU (0-234) H 10/22/19 10:32 Sodium 143 mmol/L (137-145) 10/31/19 05:09 Potassium 3.4 mmol/L (3.6-5.0) L 10/31/19 05:09 Chloride 104.3 mmol/L (98-107) 10/31/19 05:09 Carbon Dioxide 28 mmol/L (22-30) 10/31/19 05:09 Anion Gap 14 mmol/L 10/31/19 05:09 BUN 8 mg/dL (9-20) L 10/31/19 05:09 Creatinine 0.5 mg/dL (0.8-1.5) L D 10/31/19 05:09 Estimated GFR > 60 ml/min 10/31/19 05:09 BUN/Creatinine Ratio 16 % 10/31/19 05:09 Glucose 92 mg/dL (75-100) 10/31/19 05:09 POC Glucose 117 (70-105) H 10/20/19 22:52 Calcium 8.5 mg/dL (8.4-10.2) 10/31/19 05:09 Ferritin 238.1 ng/mL (13.0-400.0) 10/22/19 10:32 Total Bilirubin 0.30 mg/dL (0.1-1.2) 10/26/19 07:17 Direct Bilirubin < 0.2 mg/dL (0-0.2) 10/20/19 23:17 Indirect Bilirubin 0.6 mg/dL 10/20/19 23:17 AST 61 units/L (5-40) H 10/26/19 07:17 ALT 28 units/L (7-56) 10/26/19 07:17 Alkaline Phosphatase 45 units/L (35-129) 10/26/19 07:17 Lactate Dehydrogenase 277 units/L (91-180) H 10/22/19 10:32 Total Creatine Kinase 687 units/L (55-170) H 10/21/19 02:17 Troponin T < 0.010 ng/mL (0.00-0.029) 10/20/19 23:17 C-Reactive Protein 18.60 mg/dL (0.00-1.30) H 10/22/19 10:32 Total Protein 5.4 g/dL (6.3-8.2) L 10/26/19 07:17 Albumin 3.2 g/dL (3.9-5) L 10/26/19 07:17 Albumin/Globulin Ratio 1.5 % 10/26/19 07:17 TSH 2.560 mlU/mL (0.270-4.200) 10/21/19 02:27 Urine Color Yellow (Yellow) 10/20/19 Unknown Urine Turbidity Slightly-cloudy (Clear) 10/20/19 Unknown Urine pH 5.0 (5.0-7.0) 10/20/19 Unknown Ur Specific [place] 1.013 (1.003-1.030) 10/20/19 Unknown Urine Protein 30 mg/dl mg/dL (Negative) 10/20/19 Unknown Urine Glucose (UA) Neg mg/dL (Negative) 10/20/19 Unknown Urine Ketones 80 mg/dL (Negative) 10/20/19 Unknown Urine Blood Mod (Negative) 10/20/19 Unknown Urine Nitrite Neg (Negative) 10/20/19 Unknown Urine Bilirubin Neg (Negative) 10/20/19 Unknown Urine Urobilinogen < 2.0 mg/dL (<2.0) 10/20/19 Unknown Ur Leukocyte Esterase Neg (Negative) 10/20/19 Unknown Urine WBC (Auto) 4.0 /HPF (0.0-6.0) 10/20/19 Unknown Urine RBC (Auto) 4.0 /HPF (0.0-6.0) 10/20/19 Unknown U Epithel Cells (Auto) < 1.0 /HPF (0-13.0) 10/20/19 Unknown Urine Bacteria (Auto) 2+ /HPF (Negative) 10/20/19 Unknown Urine Mucus Few /HPF 10/20/19 Unknown Urine Yeast (Budding) 1+ /HPF 10/20/19 Unknown Urine Sperm Few /HPF (AUTO VINYL TOP INSTALLER) 10/20/19 Unknown Urine Osmolality 99 Mosm/kg 10/21/19 18:00 Urine Sodium 11 mmol/L 10/21/19 18:00 Salicylates < 0.3 mg/dL (2.8-20.0) L 10/20/19 23:17 Urine Opiates Screen Presumptive negative 10/20/19 Unknown Urine Methadone Screen Presumptive negative 10/20/19 Unknown Acetaminophen < 5.0 ug/mL (10.0-30.0) L 10/20/19 23:17 Ur Barbiturates Screen Presumptive negative 10/20/19 Unknown Ur Phencyclidine Scrn Presumptive negative 10/20/19 Unknown Ur Amphetamines Screen Presumptive negative 10/20/19 Unknown U Benzodiazepines Scrn Presumptive negative 10/20/19 Unknown Urine Cocaine Screen Presumptive negative 10/20/19 Unknown U Marijuana (THC) Screen Presumptive negative 10/20/19 Unknown Drugs of Abuse Note Disclamer 10/20/19 Unknown Plasma/Serum Alcohol < 0.01 % (0-0.07) 10/20/19 23:17 Coronavirus (PCR) Negative (Negative) 10/23/19 Unknown Watson/IV: Voiding Method Toilet IV Catheter Type [Right Hand] INT / Saline Lock IV Catheter Type [Right Peripheral IV Antecubital] IV Catheter Type [Left Forearm Peripheral IV ] Active Medications - Current Medications Current Medications: Generic Name Dose Route Start Last Admin Trade Name Freq PRN Reason Stop Dose Admin Acetaminophen 650 mg 10/21/19 02:47 Tylenol PO Q4H PRN Pain MILD(1-3)/Fever >100.5/CORREA Acetaminophen 650 mg 10/21/19 07:58 10/21/19 07:59 Tylenol IA 650 mg Q6H PRN Administration Pain, Mild (1-3) Heparin Sodium (Porcine) 5,000 unit 10/21/19 06:00 11/03/19 05:01 Heparin SUB-Q 5,000 unit Q8HR JULIANNA Administration Lorazepam 0.5 mg 10/30/19 11:58 11/02/19 23:18 Ativan PO 0.5 mg Q4H PRN Administration Agitation Magnesium Hydroxide 30 ml 10/21/19 02:47 Milk Of Magnesia PO Q4H PRN Constipation Nicotine 21 mg 11/02/19 19:00 11/03/19 09:36 Habitrol TD 21 mg QDAY JULIANNA Administration Ondansetron HCl 4 mg 10/21/19 02:47 Zofran IV Q8H PRN Nausea And Vomiting Sodium Chloride 10 ml 10/21/19 10:00 11/03/19 09:37 Sodium Chloride Flush Syringe 10 Ml IV 10 ml BID JULIANNA Administration Sodium Chloride 10 ml 10/21/19 02:47 Sodium Chloride Flush Syringe 10 Ml IV PRN PRN LINE FLUSH Valproic Acid 500 mg 10/30/19 22:00 11/03/19 09:36 Depakene Liq PO 500 mg BID JULIANNA Administration Nutrition/Malnutrition Assess - Dietary Evaluation Nutrition/Malnutrition Findings: Nutrition Notes Start: 10/22/19 14:52 Freq: Status: Active Protocol: Document 11/01/19 13:42 LM (Rec: 11/01/19 13:47 LM [id number]) Nutrition Notes Initial or Follow up Reassessment Other Pertinent Diagnosis UTI, AMS, ETOH dependence Current Diet pureed w/ nectar liq Labs/Tests K 3.4 Pertinent Medications Reviewed Height 5 ft 11 in Weight 75 kg [place] Body Weight (kg) 78.18 BMI 23.1 Weight change and time frame wt change noted Subjective/Other Information Unable to reach pt by phone. Pt with 100% intakes in chart from yesterday. MD reports state pt is eating well and off restraints. Burn Absent Trauma Absent Current % PO Negligible Minimum of two criteria No physical signs of malnutrition #1 Nutrition Diagnosis Inadequate oral intake As Evidenced by Signs and Symptoms pt with 100% intakes Diagnosis Progress(for reassessment Improved documentation) Is patient on ventilator? No Is Patient Ambulatory and/or Out of Bed No REE-([facility]-confined to bed) 2134.962 Calculation Used for Recommendations [facility] Additional Notes Protein: 86-103g (1-1.2g/kg) Fluid: 1ml/kcal Nutrition Intervention Change Diet Order: continue Add Supplement/Snack (indicate name/kcal Ensure Enlive BID chilled /protein ) Provides kCal: 700 Provides Protein (gm) 40 Goal #1 Meet at least 75% of energy and protein needs Anticipated Discharge Needs: unable to determine at this time Follow-Up By: 11/05/19 Additional Comments F/U for stable intakes
[2019-11-03] MEDS: LORazepam 0.5 MG TAB PO PRN (20:55)
[2019-11-04] MEDS: HEPARIN 5,000 UNIT/1 ML VIAL SUB-Q SCH ×3 (05:00→21:53)
[2019-11-04] MEDS: VALPROIC ACID 250 MG/5 ML ORAL LIQD PO SCH ×2 (09:53→21:52)
[2019-11-04] MEDS: NICOTINE 21 MG/24 HR PATCH TD SCH (09:53)
[2019-11-04] MEDS: ACETAMINOPHEN 325 MG TAB PO PRN (14:23)
[2019-11-04] MEDS: LORazepam 0.5 MG TAB PO PRN ×2 (14:23→18:32)
--- NOTE | 2019-11-04 20:30 | Progress Note ---
Assessment and Plan Assessment and plan: --Acute metabolic encephalopathy: Present on admission multifactorial, hyponatremia,psychosis due to alcohol intoxication Symptoms significantly improved Chest x-ray; No acute abnormality CT head; no acute abnormality PT evaluated, recommend subacute Awaiting placement SNF/subacute. --Severe hyponatremia; present on admission Resolved --Acute psychosis/mood disorder Psych evaluated the patient, Advised valproic acid No indication for inpatient psych management, --Alcohol withdrawal symptoms; resolved Ativan as needed --DVT prophylaxis: Lovenox Monitor closely and adjust management as needed DC planning per case management, For placement Plan of care reviewed with the patient and his nurse Possible discharge home tomorrow if stable DC planning per case management History Interval history: Patient seen and examined at the bedside this afternoon patient's medications and labs reviewed No new complaints, vital signs stable Awaiting placement Hospitalist Physical - Constitutional Vitals: Temp Pulse Resp BP Pulse Ox 98.5 F 66 20 97/59 95 11/04/19 16:11 11/04/19 16:11 11/04/19 16:11 11/04/19 16:11 11/04/19 16:11 General appearance: Present: no acute distress, well-nourished - EENT Eyes: Present: PERRL, EOM intact - Neck Neck: Present: supple, normal ROM - Respiratory Respiratory effort: normal Respiratory: bilateral: diminished, negative: rales, rhonchi - Cardiovascular Rhythm: regular Heart Sounds: Present: S1 & S2 - Extremities Extremities: no ischemia, No edema - Abdominal General gastrointestinal: soft, non-tender, non-distended, normal bowel sounds - Integumentary Integumentary: Present: clear, warm - Psychiatric Psychiatric: appropriate mood/affect, cooperative - Neurologic Neurologic: moves all extremities HEART Score - HEART Score Troponin: Troponin T < 0.010 ng/mL (0.00-0.029) 10/20/19 23:17 Results - Labs CBC & Chem 7: 10/31/19 05:09 10/31/19 05:09 Labs: Laboratory Last Values WBC 6.6 K/mm3 (4.5-11.0) 10/31/19 05:09 RBC 4.25 M/mm3 (3.65-5.03) 10/31/19 05:09 Hgb 12.9 gm/dl (11.8-15.2) 10/31/19 05:09 Hct 37.6 % (35.5-45.6) 10/31/19 05:09 MCV 89 fl (84-94) 10/31/19 05:09 MCH 30 pg (28-32) 10/31/19 05:09 MCHC 34 % (32-34) 10/31/19 05:09 RDW 14.4 % (13.2-15.2) 10/31/19 05:09 Plt Count 244 K/mm3 (140-440) 10/31/19 05:09 Lymph % (Auto) 33.8 % (13.4-35.0) 10/26/19 07:17 Long % (Auto) 11.1 % (0.0-7.3) H 10/26/19 07:17 Eos % (Auto) 2.0 % (0.0-4.3) 10/26/19 07:17 Baso % (Auto) 0.8 % (0.0-1.8) 10/26/19 07:17 Lymph # 2.1 K/mm3 (1.2-5.4) 10/26/19 07:17 Long # 0.7 K/mm3 (0.0-0.8) 10/26/19 07:17 Eos # 0.1 K/mm3 (0.0-0.4) 10/26/19 07:17 Baso # 0.0 K/mm3 (0.0-0.1) 10/26/19 07:17 Seg Neutrophils % 52.3 % (40.0-70.0) 10/26/19 07:17 Seg Neutrophils # 3.2 K/mm3 (1.8-7.7) 10/26/19 07:17 PT 14.4 Sec. (12.2-14.9) 10/22/19 03:59 INR 1.14 (0.87-1.13) H 10/22/19 03:59 APTT 28.2 Sec. (24.2-36.6) 10/20/19 23:17 D-Dimer 707.81 ng/mlDDU (0-234) H 10/22/19 10:32 Sodium 143 mmol/L (137-145) 10/31/19 05:09 Potassium 3.4 mmol/L (3.6-5.0) L 10/31/19 05:09 Chloride 104.3 mmol/L (98-107) 10/31/19 05:09 Carbon Dioxide 28 mmol/L (22-30) 10/31/19 05:09 Anion Gap 14 mmol/L 10/31/19 05:09 BUN 8 mg/dL (9-20) L 10/31/19 05:09 Creatinine 0.5 mg/dL (0.8-1.5) L D 10/31/19 05:09 Estimated GFR > 60 ml/min 10/31/19 05:09 BUN/Creatinine Ratio 16 % 10/31/19 05:09 Glucose 92 mg/dL (75-100) 10/31/19 05:09 POC Glucose 117 (70-105) H 10/20/19 22:52 Calcium 8.5 mg/dL (8.4-10.2) 10/31/19 05:09 Ferritin 238.1 ng/mL (13.0-400.0) 10/22/19 10:32 Total Bilirubin 0.30 mg/dL (0.1-1.2) 10/26/19 07:17 Direct Bilirubin < 0.2 mg/dL (0-0.2) 10/20/19 23:17 Indirect Bilirubin 0.6 mg/dL 10/20/19 23:17 AST 61 units/L (5-40) H 10/26/19 07:17 ALT 28 units/L (7-56) 10/26/19 07:17 Alkaline Phosphatase 45 units/L (35-129) 10/26/19 07:17 Lactate Dehydrogenase 277 units/L (91-180) H 10/22/19 10:32 Total Creatine Kinase 687 units/L (55-170) H 10/21/19 02:17 Troponin T < 0.010 ng/mL (0.00-0.029) 10/20/19 23:17 C-Reactive Protein 18.60 mg/dL (0.00-1.30) H 10/22/19 10:32 Total Protein 5.4 g/dL (6.3-8.2) L 10/26/19 07:17 Albumin 3.2 g/dL (3.9-5) L 10/26/19 07:17 Albumin/Globulin Ratio 1.5 % 10/26/19 07:17 TSH 2.560 mlU/mL (0.270-4.200) 10/21/19 02:27 Urine Color Yellow (Yellow) 10/20/19 Unknown Urine Turbidity Slightly-cloudy (Clear) 10/20/19 Unknown Urine pH 5.0 (5.0-7.0) 10/20/19 Unknown Ur Specific [place] 1.013 (1.003-1.030) 10/20/19 Unknown Urine Protein 30 mg/dl mg/dL (Negative) 10/20/19 Unknown Urine Glucose (UA) Neg mg/dL (Negative) 10/20/19 Unknown Urine Ketones 80 mg/dL (Negative) 10/20/19 Unknown Urine Blood Mod (Negative) 10/20/19 Unknown Urine Nitrite Neg (Negative) 10/20/19 Unknown Urine Bilirubin Neg (Negative) 10/20/19 Unknown Urine Urobilinogen < 2.0 mg/dL (<2.0) 10/20/19 Unknown Ur Leukocyte Esterase Neg (Negative) 10/20/19 Unknown Urine WBC (Auto) 4.0 /HPF (0.0-6.0) 10/20/19 Unknown Urine RBC (Auto) 4.0 /HPF (0.0-6.0) 10/20/19 Unknown U Epithel Cells (Auto) < 1.0 /HPF (0-13.0) 10/20/19 Unknown Urine Bacteria (Auto) 2+ /HPF (Negative) 10/20/19 Unknown Urine Mucus Few /HPF 10/20/19 Unknown Urine Yeast (Budding) 1+ /HPF 10/20/19 Unknown Urine Sperm Few /HPF (BIOMECHANICAL ENGINEER) 10/20/19 Unknown Urine Osmolality 99 Mosm/kg 10/21/19 18:00 Urine Sodium 11 mmol/L 10/21/19 18:00 Salicylates < 0.3 mg/dL (2.8-20.0) L 10/20/19 23:17 Urine Opiates Screen Presumptive negative 10/20/19 Unknown Urine Methadone Screen Presumptive negative 10/20/19 Unknown Acetaminophen < 5.0 ug/mL (10.0-30.0) L 10/20/19 23:17 Ur Barbiturates Screen Presumptive negative 10/20/19 Unknown Ur Phencyclidine Scrn Presumptive negative 10/20/19 Unknown Ur Amphetamines Screen Presumptive negative 10/20/19 Unknown U Benzodiazepines Scrn Presumptive negative 10/20/19 Unknown Urine Cocaine Screen Presumptive negative 10/20/19 Unknown U Marijuana (THC) Screen Presumptive negative 10/20/19 Unknown Drugs of Abuse Note Disclamer 10/20/19 Unknown Plasma/Serum Alcohol < 0.01 % (0-0.07) 10/20/19 23:17 Coronavirus (PCR) Negative (Negative) 10/23/19 Unknown Watson/IV: Voiding Method Toilet IV Catheter Type [Right INT / Saline Lock Forearm] IV Catheter Type [Right Hand] INT / Saline Lock IV Catheter Type [Right Peripheral IV Antecubital] IV Catheter Type [Left Forearm Peripheral IV ] Active Medications - Current Medications Current Medications: Generic Name Dose Route Start Last Admin Trade Name Freq PRN Reason Stop Dose Admin Acetaminophen 650 mg 10/21/19 02:47 11/04/19 14:23 Tylenol PO 650 mg Q4H PRN Administration Pain MILD(1-3)/Fever >100.5/CORREA Acetaminophen 650 mg 10/21/19 07:58 10/21/19 07:59 Tylenol [place] 650 mg Q6H PRN Administration Pain, Mild (1-3) Heparin Sodium (Porcine) 5,000 unit 10/21/19 06:00 11/04/19 14:55 Heparin SUB-Q 5,000 unit Q8HR JULIANNA Administration Lorazepam 0.5 mg 10/30/19 11:58 11/04/19 18:32 Ativan PO 0.5 mg Q4H PRN Administration Agitation Magnesium Hydroxide 30 ml 10/21/19 02:47 Milk Of Magnesia PO Q4H PRN Constipation Nicotine 21 mg 11/02/19 19:00 11/04/19 09:53 Habitrol TD 21 mg QDAY JULIANNA Administration Ondansetron HCl 4 mg 10/21/19 02:47 Zofran IV Q8H PRN Nausea And Vomiting Sodium Chloride 10 ml 10/21/19 10:00 11/04/19 09:53 Sodium Chloride Flush Syringe 10 Ml IV 10 ml BID JULIANNA Administration Sodium Chloride 10 ml 10/21/19 02:47 Sodium Chloride Flush Syringe 10 Ml IV PRN PRN LINE FLUSH Valproic Acid 500 mg 10/30/19 22:00 11/04/19 09:53 Depakene Liq PO 500 mg BID JULIANNA Administration Nutrition/Malnutrition Assess - Dietary Evaluation Nutrition/Malnutrition Findings: Nutrition Notes Start: 10/22/19 14:52 Freq: Status: Active Protocol: Document 11/01/19 13:42 LM (Rec: 11/01/19 13:47 LM [id number]) Nutrition Notes Initial or Follow up Reassessment Other Pertinent Diagnosis UTI, AMS, ETOH dependence Current Diet pureed w/ nectar liq Labs/Tests K 3.4 Pertinent Medications Reviewed Height 5 ft 11 in Weight 75 kg [place] Body Weight (kg) 78.18 BMI 23.1 Weight change and time frame wt change noted Subjective/Other Information Unable to reach pt by phone. Pt with 100% intakes in chart from yesterday. MD reports state pt is eating well and off restraints. Burn Absent Trauma Absent Current % PO Negligible Minimum of two criteria No physical signs of malnutrition #1 Nutrition Diagnosis Inadequate oral intake As Evidenced by Signs and Symptoms pt with 100% intakes Diagnosis Progress(for reassessment Improved documentation) Is patient on ventilator? No Is Patient Ambulatory and/or Out of Bed No REE-([facility]-confined to bed) 9336.99 Calculation Used for Recommendations [facility] Additional Notes Protein: 86-103g (1-1.2g/kg) Fluid: 1ml/kcal Nutrition Intervention Change Diet Order: continue Add Supplement/Snack (indicate name/kcal Ensure Enlive BID chilled /protein ) Provides kCal: 700 Provides Protein (gm) 40 Goal #1 Meet at least 75% of energy and protein needs Anticipated Discharge Needs: unable to determine at this time Follow-Up By: 11/05/19 Additional Comments F/U for stable intakes
[2019-11-05] MEDS: LORazepam 0.5 MG TAB PO PRN ×2 (00:38→14:29)
[2019-11-05] MEDS: HEPARIN 5,000 UNIT/1 ML VIAL SUB-Q SCH ×2 (05:35→13:30)
[2019-11-05] MEDS: NICOTINE 21 MG/24 HR PATCH TD SCH (10:12)
[2019-11-05] MEDS: VALPROIC ACID 250 MG/5 ML ORAL LIQD PO SCH (10:12)
[2019-11-05] MEDS: ACETAMINOPHEN 325 MG TAB PO PRN (14:29)
--- NOTE | 2019-11-05 15:15 | Discharge Summary ---
Providers - Providers Date of Admission: 10/21/19 05:45 Date of discharge: 11/05/19 Attending physician: SANJAY PILLAI 10/21/19 19:48 Consult to Dietitian/Nutrition [CONS] Routine Physician Instructions: Reason For Exam: Reason for Consult: Malnutrition Physical Therapy Evaluation and Treat [CONS] Routine Comment: Reason For Exam: Evaluate and treat Speech Therapy Evaluation and Treat [CONS] Routine Reason For Exam: swallow eval psychiatry consult [Consult to Mental Health] [CONS] Routine Reason For Exam: Acute psychosis/? Alcohol withdrawals Primary care physician: ASSISTANT CREDIT MANAGER Hospitalization Reason for admission: Altered level of consciousness/metabolic encephalopathy Condition: Stable Pertinent studies: Chest x-ray; No acute abnormality CT head; no acute abnormality Hospital course: Patient is a 64-year-old male brought into the emergency room today for changes in mental status. Patient was said to have been found on the floor and later stood up and became combative. He has no significant past medical history except for some mental illness. According to EMS patient was found to have abrasion over the left side of his forehead. He had been given 5 mg of Versed, 5 mg of Haldol, and 50 mg of Benadryl prior to reporting to the emergency room. Patient unable to give any history and most of the history was gotten from the emergency room physician. Work-up in the emergency room reveals hyponatremia of 112 and a mild UTI. - test fixture assembler has been consulted by the ER physician for his hyponatremia. Patient was appropriately managed placed on CIWA protocol, patient symptoms completely resolved No new episodes of confusion, PT evaluated and recommended subacute versus SNF placement. Today patient is comfortable no new complaints vital signs stable physical exam unremarkable Hemodynamically and clinically stable at discharge to SNF today Discharge diagnosis and management --Acute metabolic encephalopathy: Present on admission multifactorial, hyponatremia,psychosis due to alcohol intoxication Symptoms significantly improved PT evaluated, recommend subacute Awaiting placement SNF/subacute. --Severe hyponatremia; present on admission Resolved --Acute psychosis/mood disorder Psych evaluated the patient, Advised valproic acid No indication for inpatient psych management, --Alcohol withdrawal symptoms; resolved Stable at discharge [id number] Time spent for discharge: 35 min Core Measure Documentation - Palliative Care Palliative Care/ Comfort Measures: Not Applicable - Core Measures Any of the following diagnoses?: none Exam - Constitutional Vitals: Temp Pulse Resp BP Pulse Ox 98.2 F 59 L 20 105/63 93 11/05/19 05:15 11/05/19 05:15 11/05/19 05:15 11/05/19 05:15 11/05/19 05:15 General appearance: Present: no acute distress, well-nourished, other (Minimally communicative) - EENT Eyes: Present: PERRL, EOM intact - Neck Neck: Present: supple, normal ROM - Respiratory Respiratory effort: normal Respiratory: bilateral: diminished, negative: rales, rhonchi, wheezing - Cardiovascular Rhythm: regular Heart Sounds: Present: S1 & S2 - Extremities Extremities: no ischemia, No edema - Abdominal General gastrointestinal: Present: soft, non-tender, non-distended, normal bowel sounds - Integumentary Integumentary: Present: clear, warm - Musculoskeletal Musculoskeletal: strength equal bilaterally, generalized weakness - Psychiatric Psychiatric: appropriate mood/affect, cooperative - Neurologic Neurologic: moves all extremities Plan Activity: advance as tolerated, fall precautions Diet: other (Mechanical soft diet advance as tolerated) Special Instructions: physical therapy Additional Instructions: If you have worsening symptoms contact MD or go to emergency room. Advised to see private psych per schedule upon discharge Follow up with: JOSEFINA DIEGO MD [Primary Care Provider] - 3-5 Days CARLOS WINTERS MD [Staff Physician] - 7 Days
[2019-11-05 18:20] VITALS: BP 99/67
== END 2019-11-05 18:30 | DRG 92 ==
LOC: ED 22:31 → IMCU 10-21 05:45 → 4A 10-21 17:01 → 3A 10-22 16:49
PROVIDERS: ADMIT Internal Medicine Geriatric Medicine; ATTEND Internal Medicine
DX: G92 Toxic encephalopathy (principal); F10.230 Alcohol dependence with withdrawal, uncomplicated; E87.1 Hypo-osmolality and hyponatremia; N39.0 Urinary tract infection, site not specified; F10.24 Alcohol dependence with alcohol-induced mood disorder; F10.259 Alcohol dependence with alcohol-induced psychotic disorder, unspecified; Z20.828 Contact with and (suspected) exposure to other viral communicable diseases; S00.81XA Abrasion of other part of head, initial encounter; X58.XXXA Exposure to other specified factors, initial encounter; Y93.89 Activity, other specified; Y92.89 Other specified places as the place of occurrence of the external cause; Y99.8 Other external cause status; F17.200 Nicotine dependence, unspecified, uncomplicated; Z79.899 Other long term (current) drug therapy
CPT/HCPCS: 36415; 70450; 71045; 72125; 80048; 80053; 80076; 80307; 80320; 81001; 82550; 82728; 82962; 83615; 83935; 84300; 84443; 84484; 85025; 85027; 85379; 85610; 85730; 86140; 93005; 94760; G0378; G0480; J0696; J1644; J1940; J2060; J2405; J7030; U0003-CS

== ENCOUNTER 2021-07-01 12:43 | Emergency (ER) | payer MEDICARE ==
[2021-07-01 12:47] VITALS: BP 140/82
--- NOTE | 2021-07-01 13:39 | Emergency Department Report ---
ED Medical Clearance HPI - General Chief complaint: Medical Clearance Stated complaint: MEDICATION RECONCILIATION Time Seen by Provider: 07/01/21 13:25 Source: EMS Mode of arrival: Stretcher - History of Present Illness Initial comments: This is a 56-year-old male presents the emergency department from his personal [place] [facility] with a chief complaint that he was concerned about medications he was given. He reports he reports one of the medications the nursing staff tried to give him was at the wrong time and the other medication he had never seen before so he refused to take it. He then had EMS called. He denies any symptoms. He denies any difficulty breathing, pain, fever, chills, night sweats, weakness, suicidal or homicidal ideations or any other associated symptoms. Allergies/Adverse reactions: Allergies Allergy/AdvReac Type Severity Reaction Status Date / Time No Known Allergies Allergy Verified 07/01/21 12:47 ED Review of Systems ROS: Stated complaint: MEDICATION RECONCILIATION Other details as noted in HPI Comment: All other systems reviewed and negative Constitutional: denies: chills, fever Eyes: denies: eye pain, eye discharge, vision change ENT: denies: ear pain, throat pain Respiratory: denies: cough, shortness of breath, wheezing Cardiovascular: denies: chest pain, palpitations Endocrine: no symptoms reported Gastrointestinal: denies: abdominal pain, nausea, diarrhea Genitourinary: denies: urgency, dysuria Musculoskeletal: denies: back pain, joint swelling, arthralgia Skin: denies: rash, lesions Neurological: denies: headache, weakness, paresthesias Psychiatric: denies: anxiety, depression Hematological/Lymphatic: denies: easy bleeding, easy bruising ED Past Medical Hx - Past Medical History Previous Medical History?: Yes Additional medical history: TBI ED Physical Exam - General Limitations: No Limitations General appearance: alert, in no apparent distress - Head Head exam: Present: atraumatic, normocephalic - Eye Eye exam: Present: normal appearance - ENT ENT exam: Present: mucous membranes moist - Neck Neck exam: Present: normal inspection - Respiratory Respiratory exam: Present: normal lung sounds bilaterally. Absent: respiratory distress - Cardiovascular Cardiovascular Exam: Present: regular rate, normal rhythm. Absent: systolic murmur, diastolic murmur, rubs, gallop - GI/Abdominal GI/Abdominal exam: Present: soft, normal bowel sounds - Rectal Rectal exam: Present: deferred - Extremities Exam Extremities exam: Present: normal inspection - Back Exam Back exam: Present: normal inspection - Neurological Exam Neurological exam: Present: alert, oriented X3 - Psychiatric Psychiatric exam: Present: normal affect, normal mood - Skin Skin exam: Present: warm, dry, intact, normal color. Absent: rash ED Course Vital Signs 07/01/21 12:46 Temperature 98.2 F Pulse Rate 74 Respiratory 16 Rate Blood Pressure 140/82 [Right] O2 Sat by Pulse 98 Oximetry ED Medical Decision Making - Medical Decision Making Patient nontoxic no acute distress. Vital signs are stable. There is no physical exam was unremarkable. He had no complaints. Recommended follow-up with primary care doctor. ED Disposition Clinical Impression: Medication care plan discussed with patient Disposition: 01 HOME / SELF CARE / HOMELESS Is pt being admited?: No Condition: Stable Referrals: [facility] [Provider Group] - 3-5 Days Time of Disposition: 13:38
== END 2021-07-01 14:00 | disposition home or self-care (01) ==
LOC: EDBD → ED 12:43 → MERGE 12:43 → ED 14:00
DX: Z00.8 Encounter for other general examination (principal); Z71.89 Other specified counseling
CPT/HCPCS: 99283